=== PATIENT | male | born 1930 | race Two or more races ===

== ENCOUNTER 2021-01-19 09:20 | Inpatient (IN) | payer MEDICARE, BC ==
[2021-01-19] MEDS ORDERED: Sodium Chloride 0.9% 1,000 ML IV ONE ×2 (09:26→11:06)
--- NOTE | 2021-01-19 09:28 | EDM.PDOC ---
ED HPI GENERAL MEDICAL PROBLEM - General Chief Complaint: General Stated Complaint: DEMENTIA Time Seen by Provider: 01/19/21 09:22 Source of Information: Reports: EMS, Family History Limitations: Reports: No Limitations - History of Present Illness INITIAL COMMENTS - FREE TEXT/NARRATIVE: 89-year-old male unknown past medical history presents for family not being able to take care of him at home. Family called EMS and states that they are unable to care for patient and requested that he be brought to the hospital. Patient is not answering any questions, combative, cussing at staff. He does have a history of dementia per EMS. 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; please see [id number] for past medical records - Related Data Allergies Allergy/AdvReac Type Severity Reaction Status Date / Time No Known Allergies Allergy Verified 01/19/21 09:35 ED ROS GENERAL - Review of Systems Review Of Systems: Unable To Obtain Reason Not Obtained: dementia ED EXAM, GENERAL - Physical Exam Exam: See Below Exam Limited By: No Limitations General Appearance: Alert, Other (thin, frail, elderly male in NAD) Eye Exam: Bilateral Eye: EOMI, PERRL Ears: Hearing Grossly Normal Throat/Mouth: Other (dry oral mucousa, dried blood in teeth and lips) Head: Atraumatic, Normocephalic Neck: Normal Inspection Respiratory/Chest: No Respiratory Distress, Lungs Clear, Normal Breath Sounds, No Accessory Muscle Use Cardiovascular: Normal Peripheral Pulses, Regular Rate, Rhythm GI/Abdominal: Soft, Other (diffuse TTP) Extremities: Normal Inspection Neurological: Alert. No: Oriented Psychiatric: Other (combative, agitated ) Skin Exam: Warm, Dry, Intact #1 Interpretation EKG Date: 01/19/21 Time: 10:54 Rhythm: Other (AV dual paced) Rate (Beats/Min): 95 ST-T: Normal QT: Normal EKG Interpretation Comments: AV dual paced rhythm Course - Vital Signs Last Recorded V/S: Last Vital Signs Temp 98.2 F 01/19/21 14:49 Pulse 68 01/19/21 14:49 Resp 18 01/19/21 14:49 BP 150/72 H 01/19/21 14:49 Pulse Ox 97 01/19/21 14:49 - Orders/Labs/Meds Orders: Active Orders 24 hr Category Date Time Status Insert Wall Catheter [Insert Urinary Catheter] [OM.PC] Care 01/19/21 12:00 Ordered Q24H Urinary Catheter Assessment [RC] ASDIRECTED Care 01/19/21 11:56 Active CULTURE BLOOD [BC] Stat Lab 01/19/21 12:50 Received CULTURE BLOOD [BC] Stat Lab 01/19/21 12:55 Received Dextrose 5%-0.9% NaCl [Dextrose 5%-Normal Saline] 1,000 Med 01/19/21 13:15 Active ml IV ASDIRECTED Blood Culture x2 Reflex Set [OM.PC] Stat Oth 01/19/21 12:22 Ordered Saline Lock Insert [OM.PC] Stat Oth 01/19/21 09:22 Ordered Medication Orders Dextrose/Sodium Chloride (Dextrose 5%-Normal Saline) 1,000 mls @ 150 mls/hr IV ASDIRECTED KALPESH Last Admin: 01/19/21 13:29 Dose: 150 mls/hr Documented by: RENAE Labs: Laboratory Tests 01/19/21 01/19/21 01/19/21 Range/Units 10:00 10:00 10:00 WBC 12.14 H (4.0-11.0) K/uL RBC 5.51 (4.50-5.90) M/uL Hgb 15.3 (13.0-17.0) g/dL Hct 45.7 (38.0-50.0) % MCV 82.9 (80.0-98.0) fL MCH 27.8 (27.0-32.0) pg MCHC 33.5 (31.0-37.0) g/dL RDW Std Deviation 46.9 (28.0-62.0) fl RDW Coeff of Mitch 16 H (11.0-15.0) % Plt Count 169 (150-400) K/uL MPV 11.90 (7.40-12.00) fL Neut % (Auto) 86.8 H (48.0-80.0) % Lymph % (Auto) 4.0 L (16.0-40.0) % Noble % (Auto) 8.9 (0.0-15.0) % Eos % (Auto) 0.1 (0.0-7.0) % Baso % (Auto) 0.2 (0.0-1.5) % Neut # (Auto) 10.5 H (1.4-5.7) K/uL Lymph # (Auto) 0.5 L (0.6-2.4) K/uL Noble # (Auto) 1.1 H (0.0-0.8) K/uL Eos # (Auto) 0.0 (0.0-0.7) K/uL Baso # (Auto) 0.0 (0.0-0.1) K/uL Nucleated RBC % 0.0 /100WBC Nucleated RBCs # 0 K/uL Sodium 146 (136-148) mmol/L Potassium 4.7 (3.5-5.1) mmol/L Chloride 109 H (98-107) mmol/L Carbon Dioxide 26.6 (21.0-32.0) mmol/L BUN 44 H (7.0-18.0) mg/dL Creatinine 1.8 H (0.8-1.3) mg/dL Est Cr Clr Drug Dosing TNP Estimated GFR (MDRD) 35.7 ml/min Glucose 127 H (74-106) mg/dL Lactic Acid (0.4-2.0) mmol/L Calcium 8.8 (8.5-10.1) mg/dL Magnesium 2.4 (1.8-2.4) mg/dL Total Bilirubin 0.9 (0.2-1.0) mg/dL AST 88 H (15-37) IU/L ALT 40 (14-63) IU/L Alkaline Phosphatase 74 (46-116) U/L Creatine Kinase 1588 H (26-308) U/L Troponin I < 0.050 (0.000-0.056) ng/mL Total Protein 6.7 (6.4-8.2) g/dL Albumin 3.4 (3.4-5.0) g/dL Globulin 3.3 (2.6-4.0) g/dL Albumin/Globulin Ratio 1.0 (0.9-1.6) Lipase 42 L (73-393) U/L TSH, Ultra Sensitive 2.20 (0.36-3.74) uIU/mL Urine Color Urine Appearance Urine pH (5.0-8.0) Ur Specific [place] (1.001-1.035) Urine Protein (NEGATIVE) mg/dL Urine Glucose (UA) (NEGATIVE) mg/dL Urine Ketones (NEGATIVE) mg/dL Urine Occult Blood (NEGATIVE) Urine Nitrite (NEGATIVE) Urine Bilirubin (NEGATIVE) Urine Urobilinogen (<2.0) EU/dL Ur Leukocyte Esterase (NEGATIVE) Urine RBC (0-2/HPF) Urine WBC (0-5/HPF) Ur Epithelial Cells (NONE-FEW) Urine Bacteria (NEGATIVE) SARS-CoV-2 RNA (ROSCOE) NEGATIVE (NEGATIVE) 01/19/21 01/19/21 Range/Units 12:05 12:20 WBC (4.0-11.0) K/uL RBC (4.50-5.90) M/uL Hgb (13.0-17.0) g/dL Hct (38.0-50.0) % MCV (80.0-98.0) fL MCH (27.0-32.0) pg MCHC (31.0-37.0) g/dL RDW Std Deviation (28.0-62.0) fl RDW Coeff of Mitch (11.0-15.0) % Plt Count (150-400) K/uL MPV (7.40-12.00) fL Neut % (Auto) (48.0-80.0) % Lymph % (Auto) (16.0-40.0) % Noble % (Auto) (0.0-15.0) % Eos % (Auto) (0.0-7.0) % Baso % (Auto) (0.0-1.5) % Neut # (Auto) (1.4-5.7) K/uL Lymph # (Auto) (0.6-2.4) K/uL Noble # (Auto) (0.0-0.8) K/uL Eos # (Auto) (0.0-0.7) K/uL Baso # (Auto) (0.0-0.1) K/uL Nucleated RBC % /100WBC Nucleated RBCs # K/uL Sodium (136-148) mmol/L Potassium (3.5-5.1) mmol/L Chloride (98-107) mmol/L Carbon Dioxide (21.0-32.0) mmol/L BUN (7.0-18.0) mg/dL Creatinine (0.8-1.3) mg/dL Est Cr Clr Drug Dosing Estimated GFR (MDRD) ml/min Glucose (74-106) mg/dL Lactic Acid 1.1 (0.4-2.0) mmol/L Calcium (8.5-10.1) mg/dL Magnesium (1.8-2.4) mg/dL Total Bilirubin (0.2-1.0) mg/dL AST (15-37) IU/L ALT (14-63) IU/L Alkaline Phosphatase (46-116) U/L Creatine Kinase (26-308) U/L Troponin I (0.000-0.056) ng/mL Total Protein (6.4-8.2) g/dL Albumin (3.4-5.0) g/dL Globulin (2.6-4.0) g/dL Albumin/Globulin Ratio (0.9-1.6) Lipase (73-393) U/L TSH, Ultra Sensitive (0.36-3.74) uIU/mL Urine Color YELLOW Urine Appearance CLEAR Urine pH 6.0 (5.0-8.0) Ur Specific [place] 1.015 (1.001-1.035) Urine Protein TRACE H (NEGATIVE) mg/dL Urine Glucose (UA) NEGATIVE (NEGATIVE) mg/dL Urine Ketones TRACE H (NEGATIVE) mg/dL Urine Occult Blood SMALL H (NEGATIVE) Urine Nitrite NEGATIVE (NEGATIVE) Urine Bilirubin NEGATIVE (NEGATIVE) Urine Urobilinogen 0.2 (<2.0) EU/dL Ur Leukocyte Esterase NEGATIVE (NEGATIVE) Urine RBC 1-2 (0-2/HPF) Urine WBC 0-2 (0-5/HPF) Ur Epithelial Cells RARE (NONE-FEW) Urine Bacteria FEW (NEGATIVE) SARS-CoV-2 RNA (ROSCOE) (NEGATIVE) Meds: Medications Generic Name Dose Route Start Last Admin Trade Name Freq PRN Reason Stop Dose Admin Dextrose/Sodium Chloride 1,000 mls @ 150 mls/hr 01/19/21 13:15 01/19/21 13:29 Dextrose 5%-Normal Saline IV 150 mls/hr ASDIRECTED KALPESH Administration Discontinued Medications Generic Name Dose Route Start Last Admin Trade Name Freq PRN Reason Stop Dose Admin Diphenhydramine HCl 50 mg 01/19/21 10:40 01/19/21 10:45 Diphenhydramine 50 Mg/Ml Sdv IVPUSH 01/19/21 10:41 50 mg ONETIME ONE Administration Diphenhydramine HCl Confirm 01/19/21 10:42 01/19/21 11:23 Diphenhydramine 50 Mg/Ml Sdv Administered 01/19/21 10:43 Not Given Dose 50 mg .ROUTE .STK-MED ONE Haloperidol Lactate 5 mg 01/19/21 09:32 01/19/21 09:50 Haloperidol Lactate 5 Mg/Ml Sdv IM 01/19/21 09:33 5 mg ONETIME ONE Administration Sodium Chloride 1,000 mls @ 999 mls/hr 01/19/21 09:26 01/19/21 09:51 Normal Saline IV 01/19/21 10:26 999 mls/hr .Bolus ONE Administration Sodium Chloride 1,000 mls @ 999 mls/hr 01/19/21 11:06 01/19/21 11:54 Normal Saline IV 01/19/21 12:06 999 mls/hr .Bolus ONE Administration Cefepime HCl 1 gm/ Premix 50 mls @ 100 mls/hr 01/19/21 12:12 01/19/21 13:29 IV 01/19/21 12:41 100 mls/hr ONETIME ONE Administration Labetalol HCl 20 mg 01/19/21 12:22 01/19/21 13:12 Labetalol 100 Mg/20 Ml Mdv IVPUSH 01/19/21 12:23 Not Given ONETIME ONE Protocol Labetalol HCl 20 mg 01/19/21 13:44 01/19/21 13:49 Labetalol 100 Mg/20 Ml Mdv IVPUSH 01/19/21 13:45 20 mg ONETIME ONE Administration Protocol Lorazepam 2 mg 01/19/21 10:40 01/19/21 10:46 Lorazepam 2 Mg/Ml Sdv IVPUSH 01/19/21 10:41 2 mg ONETIME ONE Administration Lorazepam Confirm 01/19/21 10:43 01/19/21 11:23 Lorazepam 2 Mg/Ml Sdv Administered 01/19/21 10:44 Not Given Dose 2 mg .ROUTE .STK-MED ONE - Re-Assessments/Exams Free Text/Narrative Re-Assessment/Exam: 01/19/21 10:49 Extensive work-up will be performed secondary to lack of history and patient inability to provide history. Will attempt to reach out to patient's family for additional history. Patient required Haldol for sedation which was an adequate to perform medical work-up so Benadryl and Ativan was given as well. 01/19/21 10:52 Patient's family member did not answer the phone 01/19/21 11:[address] reveals a small subdural hematoma with trace midline shift. is now at bedside and able to provide additional history. notes that patient has had gradual decline over several months, eating loss, refusing to drink or take his medications. Patient with past medical history of hypertension, GERD, dementia. She notes that he fell on Monday. He has had worsening of condition since the fall. He is not on any blood thinning medications. 01/19/21 12:03 Patient was seen in the emergency department under his other medical record for his fall. He was found to have 2 rib fractures there is not a head CT performed during this visit.. 01/19/21 12:[address] Saini ER physician at [facility]; they do not have beds available and since patient is DNR/DNI/no surgical intervention, they are unable to accommodate him. I did speak with their neurosurgeon Dr. Cline who recommends keeping patient well hydrated, recommends a D5 NS drip after bolus, recommends clovidipine vs nicardipine vs labetalol for BP control systolic <140. Recommends keeping patient flat x2 days. She is agreeable to phone consultations. Will reach out to hospitalist and see if we are able to keep patient here. 01/19/21 12:21 Patient does have evidence of pneumonia on CT imaging; cefepime ordered. 01/19/21 13:08 Patient declined for admission at our hospital 2/2 low staff. Transfer center is working on in-state transfer but notes very low availability and is not having any luck at this time. 01/19/21 13:56 [facility] does not have beds 01/19/21 14:19 [facility] does not have beds 01/19/21 15:13 The [facility] transfer center is called and notes that they are unable to find any beds in the states of [place], [place], [place]. 01/19/21 15:16 We will keep patient at our facility Departure - Departure Time of Disposition: 15:16 Disposition: Admitted As Inpatient 67 Condition: Good Clinical Impression: Subdural hematoma Rhabdomyolysis Qualifiers: Rhabdomyolysis type: non-traumatic Qualified Code(s): M62.82 - Rhabdomyolysis Failure to thrive Qualifiers: Failure to thrive age range: in adult Qualified Code(s): R62.7 - Adult failure to thrive Pneumonia Qualifiers: Pneumonia type: due to unspecified organism Laterality: unspecified laterality Lung location: unspecified part of lung Qualified Code(s): J18.9 - Pneumonia, unspecified organism - Discharge Information Referrals: Pablo Reynolds MD [Primary Care Provider] - Forms: ED Department Discharge Critical Care Note - Critical Care Note Total Time (mins): 35 Sepsis Event Note (ED) - Focused Exam Vital Signs: Vital Signs Temp Pulse Resp BP Pulse Ox 01/19/21 14:49 98.2 F 68 18 150/72 H 97 01/19/21 13:54 98.2 F 84 18 152/74 H 97 01/19/21 13:48 98.2 F 88 18 187/87 H 97 01/19/21 13:33 82 18 110/90 97 01/19/21 12:54 98.2 F 92 18 179/87 H 97 01/19/21 11:15 82 18 179/87 H 97 01/19/21 10:30 87 18 97 01/19/21 10:00 98.1 F 88 18 188/83 H 97 01/19/21 09:29 96.8 F L 97 22 H 150/110 H 98 01/19/21 09:22 96.8 F L 95 22 H 156/120 H 97 - My Orders Last 24 Hours: My Active Orders 01/19/21 09:22 Saline Lock Insert [OM.PC] Stat 01/19/21 11:56 Urinary Catheter Assessment [RC] ASDIRECTED 01/19/21 12:00 Insert Wall Catheter [Insert Urinary Catheter] [OM.PC] Q24H 01/19/21 12:22 Blood Culture x2 Reflex Set [OM.PC] Stat 01/19/21 12:50 CULTURE BLOOD [BC] Stat 01/19/21 12:55 CULTURE BLOOD [BC] Stat 01/19/21 13:15 Dextrose 5%-0.9% NaCl [Dextrose 5%-Normal Saline] 1,000 ml IV ASDIRECTED - Assessment/Plan Last 24 Hours: My Active Orders 01/19/21 09:22 Saline Lock Insert [OM.PC] Stat 01/19/21 11:56 Urinary Catheter Assessment [RC] ASDIRECTED 01/19/21 12:00 Insert Wall Catheter [Insert Urinary Catheter] [OM.PC] Q24H 01/19/21 12:22 Blood Culture x2 Reflex Set [OM.PC] Stat 01/19/21 12:50 CULTURE BLOOD [BC] Stat 01/19/21 12:55 CULTURE BLOOD [BC] Stat 01/19/21 13:15 Dextrose 5%-0.9% NaCl [Dextrose 5%-Normal Saline] 1,000 ml IV ASDIRECTED
[2021-01-19] MEDS ORDERED: Haloperidol Lactate 5 MG/ML SDV IM ONE (09:32)
[2021-01-19] MEDS ORDERED: LORazepam 2 MG/ML SDV IVPUSH ONE (10:40)
[2021-01-19] MEDS ORDERED: diphenhydrAMINE 50 MG/ML SDV IVPUSH ONE (10:40)
[2021-01-19] MEDS ORDERED: diphenhydrAMINE 50 MG/ML SDV ONE (10:42)
[2021-01-19] MEDS ORDERED: LORazepam 2 MG/ML SDV ONE (10:43)
[2021-01-19 11:01] LABS: BLOOD UREA NITROGEN,BUN 44 mg/dL (7.0-18.0); CARBON DIOXIDE,CO2 26.6 mmol/L (21.0-32.0); CHLORIDE,CL 109 mmol/L (98-107); GLUCOSE RANDOM 127 mg/dL (74-106); LIPASE 42 U/L (73-393); POTASSIUM,K 4.7 mmol/L (3.5-5.1); SODIUM,NA 146 mmol/L (136-148)
--- NOTE | 2021-01-19 11:47 | CT ---
Indication: Dementia and altered mental status Technique: Volumetric multidetector CT images of the head were obtained without the administration of low osmolar intravenous contrast. Comparison: None available Findings: There is minimal hyper dense extra-axial hemorrhage along the left cerebral convexity. There is no other intra-axial or extra-axial fluid collection. There is mild left to right midline shift of 3 millimeters. There is age-related cortical atrophy with mild sulcal widening and ex vacuo dilatation of the lateral ventricles. There are chronic small vessel disease changes in the subcortical and periventricular white matter without lost nelson-white differentiation. The orbits and their contents are grossly within normal limits. The bony calvarium is grossly intact. There is mild to moderate mucosal thickening seen within the paranasal sinuses. The mastoid air cells are well aerated. Impression: Demonstration of a small left convexity subdural hematoma with effacement of the left cerebral convexity and trace [id number] midline shift. Otherwise, age-related and chronic small-vessel disease changes of the brain are appreciated. Please note that all CT scans at this facility use dose modulation, iterative reconstruction, and/or weight-based dosing when appropriate to reduce radiation dose to as low as reasonably achievable. Dictated by Rocco Chamberlain MD @ 01/19/2021 11:46:30 AM (Electronically Signed)
--- NOTE | 2021-01-19 11:57 | CT ---
Indication: Dementia, altered mental status and abdominal Pain Technique: Volumetric multidetector CT images of the abdomen and pelvis were without the administration of intravenous contrast. Comparison: None available. Findings: There is demonstration of trace right basilar pleural fluid with airspace opacity in the right lung base likely representing infiltrate. The liver is normal in attenuation without intrahepatic biliary ductal dilatation. The gallbladder is unremarkable without evidence of radiopaque calculus. There is no significant common biliary ductal dilatation or abrupt cut off. The spleen is normal in attenuation and size. There is a moderate hiatal hernia. Otherwise the proximal stomach is grossly unremarkable. The pancreas is normal in attenuation without significant atrophy. The adrenal glands are unremarkable. There is no evidence of hydronephrosis or hydroureter with demonstration of a nonobstructing calculus in the dependent bladder. There is moderate prostatic hypertrophic change. There is moderate stool seen throughout the colon. The appendix is unremarkable. There is no significant mesenteric, retroperitoneal, or pelvic sidewall lymph nodes. The aorta is nonaneurysmal. There is no significant atherosclerotic disease appreciated. The solid pelvic viscera are grossly unremarkable. There is no free fluid or free air. The anterior abdominal wall is intact without significant hernias. The lumbar vertebral body heights are grossly maintained with minimal endplate Schmorl`s defects. There is anterolisthesis of L4 on L5. There is no evidence of displaced fracture or dislocation. Impression: Minimal airspace opacity seen in the right lung base likely representing infiltrate. Nonobstructing calculi within the dependent portion of the bladder incidentally appreciated. Moderate stool is seen throughout the colon with nonspecific gas filled loops of central small bowel. This could represent minimal enteritis change. Otherwise, no definite acute intra-abdominal abnormality. Please note that all CT scans at this facility use dose modulation, iterative reconstruction, and/or weight-based dosing when appropriate to reduce radiation dose to as low as reasonably achievable. Dictated by Rocco Chamberlain MD @ 01/19/2021 11:55:12 AM (Electronically Signed)
--- NOTE | 2021-01-19 12:03 | CT ---
INDICATION: Abdominal pain. Dementia. Altered mental status. TECHNIQUE: Volumetric helical scanning of the thorax was performed without IV contrast material. Coronal and sagittal reconstructions were obtained. COMPARISON: Today`s abdomen/pelvis CT. FINDINGS: An infiltrate in the posterior right lower lobe is again demonstrated along with a small right pleural effusion. The lungs are otherwise clear. Mucous plugging in the right lower lobe base is noted. The airways are otherwise grossly negative. No mediastinal or hilar lymphadenopathy is demonstrated. The heart size is normal. Calcified coronary arterial plaque is demonstrated. A cardiac pacer is noted. A hiatal hernia of moderate large size is noted. IMPRESSION: 1. Right lower lobe pneumonia, mucus plugging in the right base and small right pleural effusion. 2. Hiatal hernia of moderate to large size. Please note that all CT scans at this facility use dose modulation, iterative reconstruction, and/or weight-based dosing when appropriate to reduce radiation dose to as low as reasonably achievable. Dictated by Kieran Quintero MD @ 01/19/2021 12:02:31 PM (Electronically Signed)
[2021-01-19] MEDS ORDERED: Cefepime 1 GM in Premix Bag 1 BAG IV ONE (12:12)
[2021-01-19] MEDS ORDERED: Labetalol 100 MG/20 ML MDV IVPUSH ONE ×2 (12:22→13:44)
[2021-01-19] MEDS ORDERED: Dextrose 5%-0.9% NaCl 1,000 ML IV SCH (13:15)
[2021-01-19] MEDS ORDERED: Acetaminophen 650 MG Supp RECTAL PRN (16:04)
[2021-01-19] MEDS ORDERED: Ondansetron 4 MG/2 ML SDV IVPUSH PRN (16:06)
[2021-01-19] MEDS ORDERED: Sodium Chloride 0.9% 2.5 ML Syringe FLUSH PRN (16:06)
--- NOTE | 2021-01-19 16:23 | PCM.HP.2 ---
H&P History of Present Illness - General Date of Service: 01/19/21 Admit Problem/Dx: Admission Diagnosis/Problem Admission Diagnosis/Problem Subdural hematoma Source of Information: Family (Gayle, ) History Limitations: Reports: Altered Mental Status - History of Present Illness Initial Comments - Free Text/Narative: This 89-year-old male with past medical history of GERD HTN and dementia presented to the ER via EMS for family concerns that they are unable to care for the patient requested that he brought back to the hospital. Patient is poor historian and has been combative and swearing at staff. arrived at bedside and explained that over the past several months he has had a significant decline not eating refusing to drink or take medications. She reports that he fell on Monday and he has since worsened since the fall. Denies any use of blood thinners. Patient was seen in the ER at this time found to have 2 displaced right rib fractures of 10th and 11th ribs but no head CT performed. In the ER mild leukocytosis noted 12,000 platelets 169,000 chloride 109 BUN 44 creatinine 1.8 glucose 127 lactic acid 1.1 creatinine kinase 1588 lipase 42 UA n egative Covid swab negative. Vital signs reveal blood pressure mildly elevated on arrival 170s over 80s blood pressure is now 150/72 patient has been given labetalol 20 mg along with Benadryl Haldol and Ativan due to agitation. He was also started on D5 normal saline. For his pneumonia he was treated with cefepime [address] of the abdomen pelvis obtained which shows trace right basilar pleural fluid with a airspace opacity likely representing an infiltrate in the right lung base. Nonobstructing calculi in portion of the bladder and moderate stool seen throughout the colon with nonspecific gas-filled loops of central small bowel this could represent minimal enteritis. Otherwise no acute intra-abdominal abnormality. Chest CT reveals right lower lobe pneumonia with mucous plug in the right base and small right pleural effusion, hiatal hernia of moderate to large size. Head CT obtained which shows demonstration of small left convexity subdural hematoma with effacement of the left cerebral convexity and trace left to right midline shift. Otherwise age-related and chronic small vessel disease changes of the brain are appreciated. ER provider contacted neurosurgeon Dr. Cline in [facility] who recommended no surgical intervention as patient is DNR/DNI and otherwise would not want surgical intervention. She recommended keeping patient well-hydrated and recommends blood pressure control for systolic under 140. Also recommends keeping patient flat for 2 days. Transfer was attempted but at this time no available beds across the state of [place] and into [place]. I did speak with , Gayle, regarding goals of care. She feels as though patient would not want any aggressive interventions including surgery or continuous IV management with medications such as a blood pressure control drip. She at this time would like patient to be more comfort care providing medication IV push for blood pressure along with agitation. She is okay with treatment of pneumonia but her ultimate goal would be comfort of the patient. She understands patient needs to be low stimulation and to lie flat for the next couple days we will repeat CT in the morning to evaluate hematoma. - Related Data Allergies/Adverse Reactions: Allergies Allergy/AdvReac Type Severity Reaction Status Date / Time No Known Allergies Allergy Verified 01/19/21 09:35 Social & Family History - Tobacco Use Tobacco Use Status *Q: Current Status Unknown Second Hand Smoke Exposure: No - Caffeine Use Caffeine Use: Reports: None - Recreational Drug Use Recreational Drug Use: No - Living Situation & Occupation Living situation: Reports: Occupation: Retired H&P Review of Systems - Review of Systems: Review Of Systems: Unable To Obtain Reason Not Obtained: patient sedated Exam - Exam Exam: See Below - Vital Signs Vital Signs: Last Vital Signs Temp 98.2 F 01/19/21 14:49 Pulse 68 01/19/21 14:49 Resp 18 01/19/21 14:49 BP 150/72 H 01/19/21 14:49 Pulse Ox 97 01/19/21 14:49 - Exam General: Sedated, Other (Does move all limbs when palpated.) HEENT: Pupils Equal (Pinpoint but reactive), Pupils Reactive Lungs: Normal Respiratory Effort, Crackles (Right base) Cardiovascular: Regular Rate, Regular Rhythm GI/Abdominal Exam: Normal Bowel Sounds, Soft, Non-Tender, No Distention Extremities: Normal Inspection, Non-Tender, No Pedal Edema Skin: Warm, Dry, Wound (Bruises and abrasions noted to arms and legs in multiple stages of healing. No signs of infection) Neuro Extensive - Mental Status: Withdraws to Pain, Other (Patient sedated unable to elicit full neurological exam.) Psychiatric: Other (Patient sedated) - Patient Data Lab Results Last 24 hrs: Laboratory Results - last 24 hr 01/19/21 01/19/21 01/19/21 Range/Units 10:00 10:00 10:00 WBC 12.14 H (4.0-11.0) K/uL RBC 5.51 (4.50-5.90) M/uL Hgb 15.3 (13.0-17.0) g/dL Hct 45.7 (38.0-50.0) % MCV 82.9 (80.0-98.0) fL MCH 27.8 (27.0-32.0) pg MCHC 33.5 (31.0-37.0) g/dL RDW Std Deviation 46.9 (28.0-62.0) fl RDW Coeff of Mitch 16 H (11.0-15.0) % Plt Count 169 (150-400) K/uL MPV 11.90 (7.40-12.00) fL Neut % (Auto) 86.8 H (48.0-80.0) % Lymph % (Auto) 4.0 L (16.0-40.0) % [place] % (Auto) 8.9 (0.0-15.0) % Eos % (Auto) 0.1 (0.0-7.0) % Baso % (Auto) 0.2 (0.0-1.5) % Neut # (Auto) 10.5 H (1.4-5.7) K/uL Lymph # (Auto) 0.5 L (0.6-2.4) K/uL [place] # (Auto) 1.1 H (0.0-0.8) K/uL Eos # (Auto) 0.0 (0.0-0.7) K/uL Baso # (Auto) 0.0 (0.0-0.1) K/uL Nucleated RBC % 0.0 /100WBC Nucleated RBCs # 0 K/uL Sodium 146 (136-148) mmol/L Potassium 4.7 (3.5-5.1) mmol/L Chloride 109 H (98-107) mmol/L Carbon Dioxide 26.6 (21.0-32.0) mmol/L BUN 44 H (7.0-18.0) mg/dL Creatinine 1.8 H (0.8-1.3) mg/dL Est Cr Clr Drug Dosing TNP Estimated GFR (MDRD) 35.7 ml/min Glucose 127 H (74-106) mg/dL Lactic Acid (0.4-2.0) mmol/L Calcium 8.8 (8.5-10.1) mg/dL Magnesium 2.4 (1.8-2.4) mg/dL Total Bilirubin 0.9 (0.2-1.0) mg/dL AST 88 H (15-37) IU/L ALT 40 (14-63) IU/L Alkaline Phosphatase 74 (46-116) U/L Creatine Kinase 1588 H (26-308) U/L Troponin I < 0.050 (0.000-0.056) ng/mL Total Protein 6.7 (6.4-8.2) g/dL Albumin 3.4 (3.4-5.0) g/dL Globulin 3.3 (2.6-4.0) g/dL Albumin/Globulin Ratio 1.0 (0.9-1.6) Lipase 42 L (73-393) U/L TSH, Ultra Sensitive 2.20 (0.36-3.74) uIU/mL Urine Color Urine Appearance Urine pH (5.0-8.0) Ur Specific Jameson (1.001-1.035) Urine Protein (NEGATIVE) mg/dL Urine Glucose (UA) (NEGATIVE) mg/dL Urine Ketones (NEGATIVE) mg/dL Urine Occult Blood (NEGATIVE) Urine Nitrite (NEGATIVE) Urine Bilirubin (NEGATIVE) Urine Urobilinogen (<2.0) EU/dL Ur Leukocyte Esterase (NEGATIVE) Urine RBC (0-2/HPF) Urine WBC (0-5/HPF) Ur Epithelial Cells (NONE-FEW) Urine Bacteria (NEGATIVE) SARS-CoV-2 RNA (ROSCOE) NEGATIVE (NEGATIVE) 01/19/21 01/19/21 Range/Units 12:05 12:20 WBC (4.0-11.0) K/uL RBC (4.50-5.90) M/uL Hgb (13.0-17.0) g/dL Hct (38.0-50.0) % MCV (80.0-98.0) fL MCH (27.0-32.0) pg MCHC (31.0-37.0) g/dL RDW Std Deviation (28.0-62.0) fl RDW Coeff of Mitch (11.0-15.0) % Plt Count (150-400) K/uL MPV (7.40-12.00) fL Neut % (Auto) (48.0-80.0) % Lymph % (Auto) (16.0-40.0) % [place] % (Auto) (0.0-15.0) % Eos % (Auto) (0.0-7.0) % Baso % (Auto) (0.0-1.5) % Neut # (Auto) (1.4-5.7) K/uL Lymph # (Auto) (0.6-2.4) K/uL [place] # (Auto) (0.0-0.8) K/uL Eos # (Auto) (0.0-0.7) K/uL Baso # (Auto) (0.0-0.1) K/uL Nucleated RBC % /100WBC Nucleated RBCs # K/uL Sodium (136-148) mmol/L Potassium (3.5-5.1) mmol/L Chloride (98-107) mmol/L Carbon Dioxide (21.0-32.0) mmol/L BUN (7.0-18.0) mg/dL Creatinine (0.8-1.3) mg/dL Est Cr Clr Drug Dosing Estimated GFR (MDRD) ml/min Glucose (74-106) mg/dL Lactic Acid 1.1 (0.4-2.0) mmol/L Calcium (8.5-10.1) mg/dL Magnesium (1.8-2.4) mg/dL Total Bilirubin (0.2-1.0) mg/dL AST (15-37) IU/L ALT (14-63) IU/L Alkaline Phosphatase (46-116) U/L Creatine Kinase (26-308) U/L Troponin I (0.000-0.056) ng/mL Total Protein (6.4-8.2) g/dL Albumin (3.4-5.0) g/dL Globulin (2.6-4.0) g/dL Albumin/Globulin Ratio (0.9-1.6) Lipase (73-393) U/L TSH, Ultra Sensitive (0.36-3.74) uIU/mL Urine Color YELLOW Urine Appearance CLEAR Urine pH 6.0 (5.0-8.0) Ur Specific Jameson 1.015 (1.001-1.035) Urine Protein TRACE H (NEGATIVE) mg/dL Urine Glucose (UA) NEGATIVE (NEGATIVE) mg/dL Urine Ketones TRACE H (NEGATIVE) mg/dL Urine Occult Blood SMALL H (NEGATIVE) Urine Nitrite NEGATIVE (NEGATIVE) Urine Bilirubin NEGATIVE (NEGATIVE) Urine Urobilinogen 0.2 (<2.0) EU/dL Ur Leukocyte Esterase NEGATIVE (NEGATIVE) Urine RBC 1-2 (0-2/HPF) Urine WBC 0-2 (0-5/HPF) Ur Epithelial Cells RARE (NONE-FEW) Urine Bacteria FEW (NEGATIVE) SARS-CoV-2 RNA (ROSCOE) (NEGATIVE) Result Diagrams: 01/19/21 10:00 01/19/21 10:00 Sepsis Event Note - Evaluation Sepsis Screening Result: No Definite Risk - Focused Exam Vital Signs: Vital Signs Temp Pulse Resp BP Pulse Ox 01/19/21 14:49 98.2 F 68 18 150/72 H 97 01/19/21 13:54 98.2 F 84 18 152/74 H 97 01/19/21 13:48 98.2 F 88 18 187/87 H 97 01/19/21 13:33 82 18 110/90 97 01/19/21 12:54 98.2 F 92 18 179/87 H 97 01/19/21 11:15 82 18 179/87 H 97 01/19/21 10:30 87 18 97 01/19/21 10:00 98.1 F 88 18 188/83 H 97 01/19/21 09:29 96.8 F L 97 22 H 150/110 H 98 01/19/21 09:22 96.8 F L 95 22 H 156/120 H 97 - Problem List (1) Subdural hematoma SNOMED Code(s): 023901048 ICD Code: S06.5X9A - TRAUM SUBDR HEM W LOC OF UNSP DURATION, INIT Status: Acute Current Visit: Yes (2) Failure to thrive SNOMED Code(s): 99612068 ICD Code: UNW2018 - Status: Acute Current Visit: Yes Qualifiers: Failure to thrive age range: in adult Qualified Code(s): R62.7 - Adult failure to thrive (3) Pneumonia SNOMED Code(s): 941859172 ICD Code: J18.9 - PNEUMONIA, UNSPECIFIED ORGANISM Status: Acute Current Visit: Yes Qualifiers: Pneumonia type: due to unspecified organism Laterality: right Lung location: lower lobe of lung Qualified Code(s): J18.9 - Pneumonia, unspecified organism (4) Palliative care status SNOMED Code(s): 317383524 ICD Code: Z51.5 - ENCOUNTER FOR PALLIATIVE CARE Status: Acute Current Vis it: Yes (5) Rhabdomyolysis SNOMED Code(s): 512133023 ICD Code: M62.82 - RHABDOMYOLYSIS Status: Acute Current Visit: Yes Qualifiers: Rhabdomyolysis type: non-traumatic Qualified Code(s): M62.82 - Rhabdomyol ysis (6) Hypertension SNOMED Code(s): 75068093 ICD Code: I10 - ESSENTIAL (PRIMARY) HYPERTENSION Status: Chronic Current Visit: Yes (7) GERD (gastroesophageal reflux disease) SNOMED Code(s): 783404114 ICD Code: K21.9 - GASTRO-ESOPHAGEAL REFLUX DISEASE WITHOUT ESOPHAGITIS Status: Chronic Current Visit: Yes (8) Dementia SNOMED Code(s): 50094352 ICD Code: F03.90 - UNSPECIFIED DEMENTIA WITHOUT BEHAVIORAL DISTURBANCE Status: Chronic Current Visit: Yes (9) Rib fractures SNOMED Code(s): 3735642 ICD Code: S22.49XA - MULTIPLE FRACTURES OF RIBS, UNSP SIDE, INIT FOR CLOS FX Status: Acute Current Visit: Yes Qualifiers: Encounter type: subsequent encounter Fracture type: closed Laterality: right Problem List Initiated/Reviewed/Updated: Yes Orders Last 24hrs: Active Orders 24 hr Category Date Time Status Patient Status [ADT] Routine ADT 01/19/21 15:22 Active Antiembolic Devices [RC] PER UNIT ROUTINE Care 01/19/21 16:06 Ordered Bedrest [RC] ASDIRECTED Care 01/19/21 16:06 Ordered Insert Wall Catheter [Insert Urinary Catheter] [OM.PC] Care 01/19/21 12:00 Ordered Q24H Oxygen Therapy [RC] PRN Care 01/19/21 16:04 Ordered Urinary Catheter Assessment [RC] ASDIRECTED Care 01/19/21 11:56 Active VTE/DVT Education [RC] PER UNIT ROUTINE Care 01/19/21 16:04 Ordered Vital Signs [RC] Q4H Care 01/19/21 16:04 Ordered Regular Diet [DIET] Diet 01/19/21 Dinner Ordered Head wo Cont [CT] Timed Exams 01/20/21 07:00 Ordered BASIC METABOLIC PANEL,BMP [CHEM] AM Lab 01/20/21 05:11 Ordered CBC WITH AUTO DIFF [HEME] AM Lab 01/20/21 05:11 Ordered CREATINE KINASE,CK [CHEM] AM Lab 01/20/21 05:11 Ordered CULTURE BLOOD [BC] Stat Lab 01/19/21 12:50 Received CULTURE BLOOD [BC] Stat Lab 01/19/21 12:55 Received MAGNESIUM [CHEM] AM Lab 01/20/21 05:11 Ordered Acetaminophen [Tylenol] Med 01/19/21 16:04 Ordered 650 mg RECTAL Q4H PRN Azithromycin [Zithromax] 500 mg Med 01/19/21 16:15 Ordered Sodium Chloride 0.9% [Normal Saline (AdvBag)] 250 ml IV DAILY Dextrose 5%-0.9% NaCl [Dextrose 5%-Normal Saline] 1,000 Med 01/19/21 16:15 Ordered ml IV Q8H LORazepam [Ativan] Med 01/19/21 16:06 Ordered 1 mg IM Q4H PRN Labetalol [Normodyne] Med 01/19/21 16:08 Ordered 10 mg IVPUSH Q2H PRN Morphine Med 01/19/21 16:04 Ordered 2 mg IVPUSH Q2H PRN OLANZapine [ZyPREXA] Med 01/19/21 16:09 Ordered 5 mg IM Q4H PRN Ondansetron [Zofran] Med 01/19/21 16:06 Ordered 4 mg IVPUSH Q4H PRN Sodium Chloride 0.9% [Saline Flush] Med 01/19/21 16:06 Ordered 2.5 ml FLUSH ASDIRECTED PRN Blood Culture x2 Reflex Set [OM.PC] Stat Oth 01/19/21 12:22 Ordered Blood Pressure [OM.PC] Routine Oth 01/19/21 16:07 Ordered Monitoring Observation Level [BH] Routine Oth 01/19/21 16:14 Ordered Saline Lock Insert [OM.PC] Routine Oth 09/07/21 16:04 Ordered Sequential Compression Device [OM.PC] Per Unit Routine Oth 01/19/21 16:06 Ordered Resuscitation Status Routine Resus Stat 01/19/21 16:04 Ordered Medication Orders Acetaminophen (Acetaminophen 650 Mg Supp) 650 mg RECTAL Q4H PRN PRN Reason: Pain (mild 1-3) Azithromycin 500 mg/ Sodium (Chloride) 250 mls @ 250 mls/hr IV Q24H KALPESH Dextrose/Sodium Chloride (Dextrose 5%-Normal Saline) 1,000 mls @ 125 mls/hr IV Q8H KALPESH Labetalol HCl (Labetalol 100 Mg/20 Ml Mdv) 10 mg IVPUSH Q2H PRN PRN Reason: SBP>140 Lorazepam (Lorazepam 2 Mg/Ml Sdv) 1 mg IM Q4H PRN PRN Reason: Agitation Morphine Sulfate (Morphine 2 Mg/Ml Syringe) 2 mg IVPUSH Q2H PRN PRN Reason: Pain (severe 7-10) Olanzapine (Olanzapine 10 Mg Vial) 5 mg IM Q4H PRN PRN Reason: Agitation Ondansetron HCl (Ondansetron 4 Mg/2 Ml Sdv) 4 mg IVPUSH Q4H PRN PRN Reason: Nausea Sodium Chloride (Sodium Chloride 0.9% 2.5 Ml Syringe) 2.5 ml FLUSH ASDIRECTED PRN PRN Reason: Keep Vein Open Assessment/Plan Comment:: This 89-year-old male admitted with subdural hematoma, CAP and failure to thrive 1. Subdural hematoma -Had long discussion with over the phone ultimate goal would be comfort she does not want any aggressive measures such as transfer, blood pressure m edication in drip form in need of ICU management and no surgical intervention -Palliative care -Continue blood pressure control keeping systolic blood pressure under 140 with labetalol IV push -Keep flat for 48 hours per neurosurgery recommendations -Wall catheter for now due to strict bedrest -Olanzapine and Ativan as needed for agitation -Continue D5NS 125 mL/h -One-to-one sitter -Repeat head CT in a.m. to evaluate hematoma -May need to consider care home placement but had discussed this with ER they have been trying to put this off as there may not be financial means of placement. 2. CAP Blood cultures pending- -Continue cefepime add azithromycin daily 3. Rhabdomyolysis -CPK 1588 continue IV fluids and recheck in a.m. 4. Failure to thrive -Patient has been refusing to eat or drink at home as well as refusing home medications -Monitor electrolytes daily VTE prophylaxis: SCDs only GI prophylaxis: Protonix CODE STATUS: DNR/DNI comfort measures Dispo: 2 to 3 days pending improvement possible pending placement Gayle contact number [phone]
[2021-01-19] MEDS: Labetalol 100 MG/20 ML MDV IVPUSH PRN ×2 (17:35→23:05)
[2021-01-19] MEDS: LORazepam 2 MG/ML SDV IM PRN ×2 (17:38→23:06)
[2021-01-19] MEDS: Azithromycin 500 MG in Sodium Chloride 0.9% 250 ML IV SCH (17:41)
[2021-01-19] MEDS: Dextrose 5%-0.9% NaCl 1,000 ML IV SCH ×2 (17:44→21:45)
[2021-01-20] MEDS ORDERED: hydrALAZINE 20 MG/ML SDV IVPUSH ONE (00:03)
[2021-01-20] MEDS ORDERED: hydrALAZINE 20 MG/ML SDV ONE (00:08)
[2021-01-20] MEDS: Cefepime 1 GM in Premix Bag 1 BAG IV SCH ×2 (00:20→13:11)
[2021-01-20] MEDS: Dextrose 5%-0.9% NaCl 1,000 ML IV SCH ×4 (00:21→20:32)
[2021-01-20] MEDS: Labetalol 100 MG/20 ML MDV IVPUSH PRN ×8 (01:45→21:36)
[2021-01-20] MEDS: Morphine 2 MG/ML SYRINGE IVPUSH PRN ×2 (02:17→13:17)
[2021-01-20] MEDS: OLANZapine 10 MG Vial IM PRN (02:30)
[2021-01-20] MEDS: LORazepam 2 MG/ML SDV IM PRN ×2 (06:00→10:05)
--- NOTE | 2021-01-20 07:05 | CT ---
HISTORY: Subdural hematoma follow-up. TECHNIQUE: Noncontrast head CT. COMPARISON: 01/19/2021. FINDINGS: No change in size or morphology of the small subdural hematoma overlying the left cerebral convexity. On axial image #19 of series 201, it measures 6 mm maximal thickness, unchanged. Minimal left to right midline shift is unchanged. There is moderate generalized cerebral and cerebellar volume loss. Areas of white matter low attenuation are nonspecific but likely reflect sequelae of chronic small vessel ischemic changes. There is stable ventricular size. There is no acute ischemic infarct. The mastoid air cells are clear. Mucosal thickening involving the right maxillary sinus. No skull fracture. IMPRESSION: 1. No change in small left-sided subdural hematoma. 2. No change in the minimal eevf-fs-nylar midline shift. 3. Moderate underlying chronic cerebral and cerebellar volume loss along with chronic small vessel ischemic changes as before. Please note that all CT scans at this facility use dose modulation, iterative reconstruction, and/or weight-based dosing when appropriate to reduce radiation dose to as low as reasonably achievable. Dictated by Remberto Ballard MD @ 01/20/2021 7:03:09 AM (Electronically Signed)
[2021-01-20 07:12] LABS: CARBON DIOXIDE,CO2 25.7 mmol/L (21.0-32.0); POTASSIUM,K 3.4 mmol/L (3.5-5.1)
--- NOTE | 2021-01-20 07:55 | PCM.PN ---
- General Info Date of Service: 01/20/21 Admission Dx/Problem (Free Text): Admission Diagnosis/Problem Admission Diagnosis/Problem Subdural hematoma Subjective Update: Patient sedated, arouses to pain. No family in room at rounds. Unable to obtain review of systems due to patient sedation - Patient Data Vitals - Most Recent: Last Vital Signs Temp 98.2 F 01/20/21 07:27 Pulse 67 01/20/21 07:27 Resp 20 01/20/21 07:27 BP 201/80 H 01/20/21 07:27 Pulse Ox 100 01/20/21 07:27 Weight - Most Recent: 51 kg I&O - Last 24 Hours: Intake & Output 01/19/21 01/20/21 01/20/21 22:59 06:59 14:59 Intake Total 1050 Balance 1050 Lab Results Last 24 Hours: Laboratory Results - last 24 hr 01/19/21 01/19/21 01/19/21 Range/Units 10:00 10:00 10:00 WBC 12.14 H (4.0-11.0) K/uL RBC 5.51 (4.50-5.90) M/uL Hgb 15.3 (13.0-17.0) g/dL Hct 45.7 (38.0-50.0) % MCV 82.9 (80.0-98.0) fL MCH 27.8 (27.0-32.0) pg MCHC 33.5 (31.0-37.0) g/dL RDW Std Deviation 46.9 (28.0-62.0) fl RDW Coeff of Mitch 16 H (11.0-15.0) % Plt Count 169 (150-400) K/uL MPV 11.90 (7.40-12.00) fL Neut % (Auto) 86.8 H (48.0-80.0) % Lymph % (Auto) 4.0 L (16.0-40.0) % [place] % (Auto) 8.9 (0.0-15.0) % Eos % (Auto) 0.1 (0.0-7.0) % Baso % (Auto) 0.2 (0.0-1.5) % Neut # (Auto) 10.5 H (1.4-5.7) K/uL Lymph # (Auto) 0.5 L (0.6-2.4) K/uL [place] # (Auto) 1.1 H (0.0-0.8) K/uL Eos # (Auto) 0.0 (0.0-0.7) K/uL Baso # (Auto) 0.0 (0.0-0.1) K/uL Nucleated RBC % 0.0 /100WBC Nucleated RBCs # 0 K/uL Sodium 146 (136-148) mmol/L Potassium 4.7 (3.5-5.1) mmol/L Chloride 109 H (98-107) mmol/L Carbon Dioxide 26.6 (21.0-32.0) mmol/L BUN 44 H (7.0-18.0) mg/dL Creatinine 1.8 H (0.8-1.3) mg/dL Est Cr Clr Drug Dosing TNP Estimated GFR (MDRD) 35.7 ml/min Glucose 127 H (74-106) mg/dL Lactic Acid (0.4-2.0) mmol/L Calcium 8.8 (8.5-10.1) mg/dL Magnesium 2.4 (1.8-2.4) mg/dL Total Bilirubin 0.9 (0.2-1.0) mg/dL AST 88 H (15-37) IU/L ALT 40 (14-63) IU/L Alkaline Phosphatase 74 (46-116) U/L Creatine Kinase 1588 H (26-308) U/L Troponin I < 0.050 (0.000-0.056) ng/mL Total Protein 6.7 (6.4-8.2) g/dL Albumin 3.4 (3.4-5.0) g/dL Globulin 3.3 (2.6-4.0) g/dL Albumin/Globulin Ratio 1.0 (0.9-1.6) Lipase 42 L (73-393) U/L TSH, Ultra Sensitive 2.20 (0.36-3.74) uIU/mL Urine Color Urine Appearance Urine pH (5.0-8.0) Ur Specific [place] (1.001-1.035) Urine Protein (NEGATIVE) mg/dL Urine Glucose (UA) (NEGATIVE) mg/dL Urine Ketones (NEGATIVE) mg/dL Urine Occult Blood (NEGATIVE) Urine Nitrite (NEGATIVE) Urine Bilirubin (NEGATIVE) Urine Urobilinogen (<2.0) EU/dL Ur Leukocyte Esterase (NEGATIVE) Urine RBC (0-2/HPF) Urine WBC (0-5/HPF) Ur Epithelial Cells (NONE-FEW) Urine Bacteria (NEGATIVE) SARS-CoV-2 RNA ([place]) NEGATIVE (NEGATIVE) 01/19/21 01/19/21 01/20/21 Range/Units 12:05 12:20 05:50 WBC 9.14 (4.0-11.0) K/uL RBC 4.83 (4.50-5.90) M/uL Hgb 13.4 (13.0-17.0) g/dL Hct 40.7 (38.0-50.0) % MCV 84.3 (80.0-98.0) fL MCH 27.7 (27.0-32.0) pg MCHC 32.9 (31.0-37.0) g/dL RDW Std Deviation 48.0 (28.0-62.0) fl RDW Coeff of Mitch 16 H (11.0-15.0) % Plt Count 148 L (150-400) K/uL MPV 12.00 (7.40-12.00) fL Neut % (Auto) 84.3 H (48.0-80.0) % Lymph % (Auto) 6.7 L (16.0-40.0) % [place] % (Auto) 8.6 (0.0-15.0) % Eos % (Auto) 0.3 (0.0-7.0) % Baso % (Auto) 0.1 (0.0-1.5) % Neut # (Auto) 7.7 H (1.4-5.7) K/uL Lymph # (Auto) 0.6 (0.6-2.4) K/uL [place] # (Auto) 0.8 (0.0-0.8) K/uL Eos # (Auto) 0.0 (0.0-0.7) K/uL Baso # (Auto) 0.0 (0.0-0.1) K/uL Nucleated RBC % 0.0 /100WBC Nucleated RBCs # 0 K/uL Sodium (136-148) mmol/L Potassium (3.5-5.1) mmol/L Chloride (98-107) mmol/L Carbon Dioxide (21.0-32.0) mmol/L BUN (7.0-18.0) mg/dL Creatinine (0.8-1.3) mg/dL Est Cr Clr Drug Dosing Estimated GFR (MDRD) ml/min Glucose (74-106) mg/dL Lactic Acid 1.1 (0.4-2.0) mmol/L Calcium (8.5-10.1) mg/dL Magnesium (1.8-2.4) mg/dL Total Bilirubin (0.2-1.0) mg/dL AST (15-37) IU/L ALT (14-63) IU/L Alkaline Phosphatase (46-116) U/L Creatine Kinase (26-308) U/L Troponin I (0.000-0.056) ng/mL Total Protein (6.4-8.2) g/dL Albumin (3.4-5.0) g/dL Globulin (2.6-4.0) g/dL Albumin/Globulin Ratio (0.9-1.6) Lipase (73-393) U/L TSH, Ultra Sensitive (0.36-3.74) uIU/mL Urine Color YELLOW Urine Appearance CLEAR Urine pH 6.0 (5.0-8.0) Ur Specific [place] 1.015 (1.001-1.035) Urine Protein TRACE H (NEGATIVE) mg/dL Urine Glucose (UA) NEGATIVE (NEGATIVE) mg/dL Urine Ketones TRACE H (NEGATIVE) mg/dL Urine Occult Blood SMALL H (NEGATIVE) Urine Nitrite NEGATIVE (NEGATIVE) Urine Bilirubin NEGATIVE (NEGATIVE) Urine Urobilinogen 0.2 (<2.0) EU/dL Ur Leukocyte Esterase NEGATIVE (NEGATIVE) Urine RBC 1-2 (0-2/HPF) Urine WBC 0-2 (0-5/HPF) Ur Epithelial Cells RARE (NONE-FEW) Urine Bacteria FEW (NEGATIVE) SARS-CoV-2 RNA ([place]) (NEGATIVE) 01/20/21 Range/Units 05:50 WBC (4.0-11.0) K/uL RBC (4.50-5.90) M/uL Hgb (13.0-17.0) g/dL Hct (38.0-50.0) % MCV (80.0-98.0) fL MCH (27.0-32.0) pg MCHC (31.0-37.0) g/dL RDW Std Deviation (28.0-62.0) fl RDW Coeff of Mitch (11.0-15.0) % Plt Count (150-400) K/uL MPV (7.40-12.00) fL Neut % (Auto) (48.0-80.0) % Lymph % (Auto) (16.0-40.0) % [place] % (Auto) (0.0-15.0) % Eos % (Auto) (0.0-7.0) % Baso % (Auto) (0.0-1.5) % Neut # (Auto) (1.4-5.7) K/uL Lymph # (Auto) (0.6-2.4) K/uL [place] # (Auto) (0.0-0.8) K/uL Eos # (Auto) (0.0-0.7) K/uL Baso # (Auto) (0.0-0.1) K/uL Nucleated RBC % /100WBC Nucleated RBCs # K/uL Sodium 149 H (136-148) mmol/L Potassium 3.4 L (3.5-5.1) mmol/L Chloride 116 H (98-107) mmol/L Carbon Dioxide 25.7 (21.0-32.0) mmol/L BUN 27 H (7.0-18.0) mg/dL Creatinine 1.3 (0.8-1.3) mg/dL Est Cr Clr Drug Dosing 27.79 Estimated GFR (MDRD) 52.0 ml/min Glucose 141 H (74-106) mg/dL Lactic Acid (0.4-2.0) mmol/L Calcium 7.8 L (8.5-10.1) mg/dL Magnesium 2.2 (1.8-2.4) mg/dL Total Bilirubin (0.2-1.0) mg/dL AST (15-37) IU/L ALT (14-63) IU/L Alkaline Phosphatase (46-116) U/L Creatine Kinase 479 H (26-308) U/L Troponin I (0.000-0.056) ng/mL Total Protein (6.4-8.2) g/dL Albumin (3.4-5.0) g/dL Globulin (2.6-4.0) g/dL Albumin/Globulin Ratio (0.9-1.6) Lipase (73-393) U/L TSH, Ultra Sensitive (0.36-3.74) uIU/mL Urine Color Urine Appearance Urine pH (5.0-8.0) Ur Specific [place] (1.001-1.035) Urine Protein (NEGATIVE) mg/dL Urine Glucose (UA) (NEGATIVE) mg/dL Urine Ketones (NEGATIVE) mg/dL Urine Occult Blood (NEGATIVE) Urine Nitrite (NEGATIVE) Urine Bilirubin (NEGATIVE) Urine Urobilinogen (<2.0) EU/dL Ur Leukocyte Esterase (NEGATIVE) Urine RBC (0-2/HPF) Urine WBC (0-5/HPF) Ur Epithelial Cells (NONE-FEW) Urine Bacteria (NEGATIVE) SARS-CoV-2 RNA ([place]) (NEGATIVE) Med Orders - Current: Current Medications Acetaminophen (Acetaminophen 650 Mg Supp) 650 mg RECTAL Q4H PRN PRN Reason: Pain (mild 1-3) Azithromycin 500 mg/ Sodium (Chloride) 250 mls @ 250 mls/hr IV Q24H [facility] Last Admin: 01/19/21 17:41 Dose: 250 mls/hr Documented by: Dextrose/Sodium Chloride (Dextrose 5%-Normal Saline) 1,000 mls @ 125 mls/hr IV Q8H [facility] Last Admin: 01/20/21 00:21 Dose: Not Given Documented by: Cefepime HCl 1 gm/ Premix 50 mls @ 100 mls/hr IV Q12H [facility] Last Admin: 01/20/21 00:20 Dose: 100 mls/hr Documented by: Labetalol HCl (Labetalol 100 Mg/20 Ml Mdv) 10 mg IVPUSH Q2H PRN PRN Reason: SBP>140 Last Admin: 01/20/21 06:00 Dose: 10 mg Documented by: Lorazepam (Lorazepam 2 Mg/Ml Sdv) 1 mg IM Q4H PRN PRN Reason: Agitation Last Admin: 01/20/21 06:00 Dose: 1 mg Documented by: Morphine Sulfate (Morphine 2 Mg/Ml Syringe) 2 mg IVPUSH Q2H PRN PRN Reason: Pain (severe 7-10) Last Admin: 01/20/21 02:17 Dose: 2 mg Documented by: Olanzapine (Olanzapine 10 Mg Vial) 5 mg IM Q4H PRN PRN Reason: Agitation Last Admin: 01/20/21 02:30 Dose: 5 mg Documented by: Ondansetron HCl (Ondansetron 4 Mg/2 Ml Sdv) 4 mg IVPUSH Q4H PRN PRN Reason: Nausea Sodium Chloride (Sodium Chloride 0.9% 2.5 Ml Syringe) 2.5 ml FLUSH ASDIRECTED PRN PRN Reason: Keep Vein Open Discontinued Medications Diphenhydramine HCl (Diphenhydramine 50 Mg/Ml Sdv) 50 mg IVPUSH ONETIME ONE Stop: 01/19/21 10:41 Last Admin: 01/19/21 10:45 Dose: 50 mg Documented by: Diphenhydramine HCl (Diphenhydramine 50 Mg/Ml Sdv) Confirm Administered Dose 50 mg .ROUTE .STK-MED ONE Stop: 01/19/21 10:43 Last Admin: 01/19/21 11:23 Dose: Not Given Documented by: Haloperidol Lactate (Haloperidol Lactate 5 Mg/Ml Sdv) 5 mg IM ONETIME ONE Stop: 01/19/21 09:33 Last Admin: 01/19/21 09:50 Dose: 5 mg Documented by: Hydralazine HCl (Hydralazine 20 Mg/Ml Sdv) 10 mg IVPUSH ONETIME ONE Stop: 01/20/21 00:04 Last Admin: 01/20/21 00:19 Dose: 10 mg Documented by: Hydralazine HCl (Hydralazine 20 Mg/Ml Sdv) Confirm Administered Dose 20 mg .ROUTE .STK-MED ONE Stop: 01/20/21 00:09 Last Admin: 01/20/21 00:21 Dose: Not Given Documented by: Sodium Chloride (Normal Saline) 1,000 mls @ 999 mls/hr IV .Bolus ONE Stop: 01/19/21 10:26 Last Admin: 01/19/21 09:51 Dose: 999 mls/hr Documented by: Sodium Chloride (Normal Saline) 1,000 mls @ 999 mls/hr IV .Bolus ONE Stop: 01/19/21 12:06 Last Admin: 01/19/21 11:54 Dose: 999 mls/hr Documented by: Cefepime HCl 1 gm/ Premix 50 mls @ 100 mls/hr IV ONETIME ONE Stop: 01/19/21 12:41 Last Admin: 01/19/21 13:29 Dose: 100 mls/hr Documented by: Dextrose/Sodium Chloride (Dextrose 5%-Normal Saline) 1,000 mls @ 150 mls/hr IV ASDIRECTED [facility] Last Admin: 01/19/21 13:29 Dose: 150 mls/hr Documented by: Labetalol HCl (Labetalol 100 Mg/20 Ml Mdv) 20 mg IVPUSH ONETIME ONE; Protocol Stop: 01/19/21 12:23 Last Admin: 01/19/21 13:12 Dose: Not Given Documented by: Labetalol HCl (Labetalol 100 Mg/20 Ml Mdv) 20 mg IVPUSH ONETIME ONE; Protocol Stop: 01/19/21 13:45 Last Admin: 01/19/21 13:49 Dose: 20 mg Documented by: Lorazepam (Lorazepam 2 Mg/Ml Sdv) 2 mg IVPUSH ONETIME ONE Stop: 01/19/21 10:41 Last Admin: 01/19/21 10:46 Dose: 2 mg Documented by: Lorazepam (Lorazepam 2 Mg/Ml Sdv) Confirm Administered Dose 2 mg .ROUTE .STK-MED ONE Stop: 01/19/21 10:44 Last Admin: 01/19/21 11:23 Dose: Not Given Documented by: - Exam Urinary Catheter Total Time: 0Days 0Hours General: Sedated Lungs: Clear to Auscultation, Normal Respiratory Effort Cardiovascular: Regular Rate, Regular Rhythm GI/Abdominal Exam: Normal Bowel Sounds, Soft, Non-Tender Extremities: Normal Inspection, Normal Range of Motion, Non-Tender, No Pedal Edema Wound/Incisions: Other (Erythema ecchymosis to arms abrasions to bilateral legs and arms) Neurological: No New Focal Deficit Psy/Mental Status: Alert, Normal Affect, Normal Mood - Patient Data Lab Results Last 24 hrs: Laboratory Results - last 24 hr 01/19/21 01/19/21 01/19/21 Range/Units 10:00 10:00 10:00 WBC 12.14 H (4.0-11.0) K/uL RBC 5.51 (4.50-5.90) M/uL Hgb 15.3 (13.0-17.0) g/dL Hct 45.7 (38.0-50.0) % MCV 82.9 (80.0-98.0) fL MCH 27.8 (27.0-32.0) pg MCHC 33.5 (31.0-37.0) g/dL RDW Std Deviation 46.9 (28.0-62.0) fl RDW Coeff of Mitch 16 H (11.0-15.0) % Plt Count 169 (150-400) K/uL MPV 11.90 (7.40-12.00) fL Neut % (Auto) 86.8 H (48.0-80.0) % Lymph % (Auto) 4.0 L (16.0-40.0) % [place] % (Auto) 8.9 (0.0-15.0) % Eos % (Auto) 0.1 (0.0-7.0) % Baso % (Auto) 0.2 (0.0-1.5) % Neut # (Auto) 10.5 H (1.4-5.7) K/uL Lymph # (Auto) 0.5 L (0.6-2.4) K/uL [place] # (Auto) 1.1 H (0.0-0.8) K/uL Eos # (Auto) 0.0 (0.0-0.7) K/uL Baso # (Auto) 0.0 (0.0-0.1) K/uL Nucleated RBC % 0.0 /100WBC Nucleated RBCs # 0 K/uL Sodium 146 (136-148) mmol/L Potassium 4.7 (3.5-5.1) mmol/L Chloride 109 H (98-107) mmol/L Carbon Dioxide 26.6 (21.0-32.0) mmol/L BUN 44 H (7.0-18.0) mg/dL Creatinine 1.8 H (0.8-1.3) mg/dL Est Cr Clr Drug Dosing TNP Estimated GFR (MDRD) 35.7 ml/min Glucose 127 H (74-106) mg/dL Lactic Acid (0.4-2.0) mmol/L Calcium 8.8 (8.5-10.1) mg/dL Magnesium 2.4 (1.8-2.4) mg/dL Total Bilirubin 0.9 (0.2-1.0) mg/dL AST 88 H (15-37) IU/L ALT 40 (14-63) IU/L Alkaline Phosphatase 74 (46-116) U/L Creatine Kinase 1588 H (26-308) U/L Troponin I < 0.050 (0.000-0.056) ng/mL Total Protein 6.7 (6.4-8.2) g/dL Albumin 3.4 (3.4-5.0) g/dL Globulin 3.3 (2.6-4.0) g/dL Albumin/Globulin Ratio 1.0 (0.9-1.6) Lipase 42 L (73-393) U/L TSH, Ultra Sensitive 2.20 (0.36-3.74) uIU/mL Urine Color Urine Appearance Urine pH (5.0-8.0) Ur Specific [place] (1.001-1.035) Urine Protein (NEGATIVE) mg/dL Urine Glucose (UA) (NEGATIVE) mg/dL Urine Ketones (NEGATIVE) mg/dL Urine Occult Blood (NEGATIVE) Urine Nitrite (NEGATIVE) Urine Bilirubin (NEGATIVE) Urine Urobilinogen (<2.0) EU/dL Ur Leukocyte Esterase (NEGATIVE) Urine RBC (0-2/HPF) Urine WBC (0-5/HPF) Ur Epithelial Cells (NONE-FEW) Urine Bacteria (NEGATIVE) SARS-CoV-2 RNA ([place]) NEGATIVE (NEGATIVE) 01/19/21 01/19/21 01/20/21 Range/Units 12:05 12:20 05:50 WBC 9.14 (4.0-11.0) K/uL RBC 4.83 (4.50-5.90) M/uL Hgb 13.4 (13.0-17.0) g/dL Hct 40.7 (38.0-50.0) % MCV 84.3 (80.0-98.0) fL MCH 27.7 (27.0-32.0) pg MCHC 32.9 (31.0-37.0) g/dL RDW Std Deviation 48.0 (28.0-62.0) fl RDW Coeff of Mitch 16 H (11.0-15.0) % Plt Count 148 L (150-400) K/uL MPV 12.00 (7.40-12.00) fL Neut % (Auto) 84.3 H (48.0-80.0) % Lymph % (Auto) 6.7 L (16.0-40.0) % [place] % (Auto) 8.6 (0.0-15.0) % Eos % (Auto) 0.3 (0.0-7.0) % Baso % (Auto) 0.1 (0.0-1.5) % Neut # (Auto) 7.7 H (1.4-5.7) K/uL Lymph # (Auto) 0.6 (0.6-2.4) K/uL [place] # (Auto) 0.8 (0.0-0.8) K/uL Eos # (Auto) 0.0 (0.0-0.7) K/uL Baso # (Auto) 0.0 (0.0-0.1) K/uL Nucleated RBC % 0.0 /100WBC Nucleated RBCs # 0 K/uL Sodium (136-148) mmol/L Potassium (3.5-5.1) mmol/L Chloride (98-107) mmol/L Carbon Dioxide (21.0-32.0) mmol/L BUN (7.0-18.0) mg/dL Creatinine (0.8-1.3) mg/dL Est Cr Clr Drug Dosing Estimated GFR (MDRD) ml/min Glucose (74-106) mg/dL Lactic Acid 1.1 (0.4-2.0) mmol/L Calcium (8.5-10.1) mg/dL Magnesium (1.8-2.4) mg/dL Total Bilirubin (0.2-1.0) mg/dL AST (15-37) IU/L ALT (14-63) IU/L Alkaline Phosphatase (46-116) U/L Creatine Kinase (26-308) U/L Troponin I (0.000-0.056) ng/mL Total Protein (6.4-8.2) g/dL Albumin (3.4-5.0) g/dL Globulin (2.6-4.0) g/dL Albumin/Globulin Ratio (0.9-1.6) Lipase (73-393) U/L TSH, Ultra Sensitive (0.36-3.74) uIU/mL Urine Color YELLOW Urine Appearance CLEAR Urine pH 6.0 (5.0-8.0) Ur Specific [place] 1.015 (1.001-1.035) Urine Protein TRACE H (NEGATIVE) mg/dL Urine Glucose (UA) NEGATIVE (NEGATIVE) mg/dL Urine Ketones TRACE H (NEGATIVE) mg/dL Urine Occult Blood SMALL H (NEGATIVE) Urine Nitrite NEGATIVE (NEGATIVE) Urine Bilirubin NEGATIVE (NEGATIVE) Urine Urobilinogen 0.2 (<2.0) EU/dL Ur Leukocyte Esterase NEGATIVE (NEGATIVE) Urine RBC 1-2 (0-2/HPF) Urine WBC 0-2 (0-5/HPF) Ur Epithelial Cells RARE (NONE-FEW) Urine Bacteria FEW (NEGATIVE) SARS-CoV-2 RNA ([place]) (NEGATIVE) 01/20/21 Range/Units 05:50 WBC (4.0-11.0) K/uL RBC (4.50-5.90) M/uL Hgb (13.0-17.0) g/dL Hct (38.0-50.0) % MCV (80.0-98.0) fL MCH (27.0-32.0) pg MCHC (31.0-37.0) g/dL RDW Std Deviation (28.0-62.0) fl RDW Coeff of Mitch (11.0-15.0) % Plt Count (150-400) K/uL MPV (7.40-12.00) fL Neut % (Auto) (48.0-80.0) % Lymph % (Auto) (16.0-40.0) % [place] % (Auto) (0.0-15.0) % Eos % (Auto) (0.0-7.0) % Baso % (Auto) (0.0-1.5) % Neut # (Auto) (1.4-5.7) K/uL Lymph # (Auto) (0.6-2.4) K/uL [place] # (Auto) (0.0-0.8) K/uL Eos # (Auto) (0.0-0.7) K/uL Baso # (Auto) (0.0-0.1) K/uL Nucleated RBC % /100WBC Nucleated RBCs # K/uL Sodium 149 H (136-148) mmol/L Potassium 3.4 L (3.5-5.1) mmol/L Chloride 116 H (98-107) mmol/L Carbon Dioxide 25.7 (21.0-32.0) mmol/L BUN 27 H (7.0-18.0) mg/dL Creatinine 1.3 (0.8-1.3) mg/dL Est Cr Clr Drug Dosing 27.79 Estimated GFR (MDRD) 52.0 ml/min Glucose 141 H (74-106) mg/dL Lactic Acid (0.4-2.0) mmol/L Calcium 7.8 L (8.5-10.1) mg/dL Magnesium 2.2 (1.8-2.4) mg/dL Total Bilirubin (0.2-1.0) mg/dL AST (15-37) IU/L ALT (14-63) IU/L Alkaline Phosphatase (46-116) U/L Creatine Kinase 479 H (26-308) U/L Troponin I (0.000-0.056) ng/mL Total Protein (6.4-8.2) g/dL Albumin (3.4-5.0) g/dL Globulin (2.6-4.0) g/dL Albumin/Globulin Ratio (0.9-1.6) Lipase (73-393) U/L TSH, Ultra Sensitive (0.36-3.74) uIU/mL Urine Color Urine Appearance Urine pH (5.0-8.0) Ur Specific [place] (1.001-1.035) Urine Protein (NEGATIVE) mg/dL Urine Glucose (UA) (NEGATIVE) mg/dL Urine Ketones (NEGATIVE) mg/dL Urine Occult Blood (NEGATIVE) Urine Nitrite (NEGATIVE) Urine Bilirubin (NEGATIVE) Urine Urobilinogen (<2.0) EU/dL Ur Leukocyte Esterase (NEGATIVE) Urine RBC (0-2/HPF) Urine WBC (0-5/HPF) Ur Epithelial Cells (NONE-FEW) Urine Bacteria (NEGATIVE) SARS-CoV-2 RNA ([place]) (NEGATIVE) Result Diagrams: 01/20/21 05:50 01/20/21 05:50 Sepsis Event Note - Evaluation Sepsis Screening Result: No Definite Risk - Focused Exam Vital Signs: Vital Signs Temp Pulse Resp BP Pulse Ox 01/20/21 07:27 98.2 F 67 20 201/80 H 100 01/20/21 06:30 97.2 F 70 20 197/84 H 95 01/20/21 05:58 67 153/69 H 01/20/21 05:00 72 172/71 H 01/20/21 04:30 66 144/58 H 01/20/21 04:00 69 160/76 H 01/20/21 03:37 72 174/59 H 01/20/21 03:24 66 146/103 H 01/20/21 03:00 96.8 F L 67 168/58 H 96 01/20/21 02:30 67 197/98 H 01/20/21 02:10 62 18 162/65 H 96 01/20/21 01:44 64 16 180/58 H 01/20/21 00:45 62 175/62 H 01/20/21 00:15 59 L 16 195/72 H 96 01/20/21 00:00 59 L 186/67 H 01/19/21 23:30 61 176/67 H 01/19/21 23:15 60 20 171/65 H 97 01/19/21 22:30 61 20 192/80 H 95 01/19/21 22:00 63 185/71 H 01/19/21 21:30 60 173/71 H 99 01/19/21 21:00 61 182/69 H 97 01/19/21 20:30 61 151/79 H 97 01/19/21 20:00 60 166/62 H 99 - Problem List & Annotations (1) Subdural hematoma SNOMED Code(s): 881390570 Code(s): S06.5X9A - TRAUM SUBDR HEM W LOC OF UNSP DURATION, INIT Status: Acute Current Visit: Yes (2) Failure to thrive SNOMED Code(s): 25006849 Code(s): IVD0761 - Status: Acute Current Visit: Yes Qualifiers: Failure to thrive age range: in adult Qualified Code(s): R62.7 - Adult failure to thrive (3) Pneumonia SNOMED Code(s): 917124901 Code(s): J18.9 - PNEUMONIA, UNSPECIFIED ORGANISM Status: Acute Current Visit: Yes Qualifiers: Pneumonia type: due to unspecified organism Laterality: right Lung location: lower lobe of lung Qualified Code(s): J18.9 - Pneumonia, unspecified organism (4) Palliative care status SNOMED Code(s): 711549333 Code(s): Z51.5 - ENCOUNTER FOR PALLIATIVE CARE Status: Acute Current Visit: Yes (5) Rhabdomyolysis SNOMED Code(s): 891287014 Code(s): M62.82 - RHABDOMYOLYSIS Status: Acute Current Visit: Yes Qualifiers: Rhabdomyolysis type: non-traumatic Qualified Code(s): M62.82 - Rhabdomyolysis (6) Hypertension SNOMED Code(s): 90412585 Code(s): I10 - ESSENTIAL (PRIMARY) HYPERTENSION Status: Chronic Current Visit: Yes (7) GERD (gastroesophageal reflux disease) SNOMED Code(s): 798018285 Code(s): K21.9 - GASTRO-ESOPHAGEAL REFLUX DISEASE WITHOUT ESOPHAGITIS Status: Chronic Current Visit: Yes (8) Dementia SNOMED Code(s): 07293350 Code(s): F03.90 - UNSPECIFIED DEMENTIA WITHOUT BEHAVIORAL DISTURBANCE Status: Chronic Current Visit: Yes (9) Rib fractures SNOMED Code(s): 5316013 Code(s): S22.49XA - MULTIPLE FRACTURES OF RIBS, UNSP SIDE, INIT FOR CLOS FX Status: Acute Current Visit: Yes Qualifiers: Encounter type: subsequent encounter Fracture type: closed Laterality: right - Problem List Review Problem List Initiated/Reviewed/Updated: Yes - My Orders Last 24 Hours: My Active Orders 01/19/21 Dinner Regular Diet [DIET] 01/19/21 16:04 Oxygen Therapy [RC] PRN VTE/DVT Education [RC] PER UNIT ROUTINE Vital Signs [RC] Q4H Acetaminophen [Tylenol] 650 mg RECTAL Q4H PRN Saline Lock Insert [OM.PC] Routine Resuscitation Status Routine 01/19/21 16:06 Antiembolic Devices [RC] PER UNIT ROUTINE Bedrest [RC] ASDIRECTED LORazepam [Ativan] 1 mg IM Q4H PRN Ondansetron [Zofran] 4 mg IVPUSH Q4H PRN Sodium Chloride 0.9% [Saline Flush] 2.5 ml FLUSH ASDIRECTED PRN Sequential Compression Device [OM.PC] Per Unit Routine 01/19/21 16:07 Blood Pressure [OM.PC] Routine 01/19/21 16:08 Labetalol [Normodyne] 10 mg IVPUSH Q2H PRN 01/19/21 16:09 OLANZapine [ZyPREXA] 5 mg IM Q4H PRN 01/19/21 16:12 Morphine 2 mg IVPUSH Q2H PRN 01/19/21 16:14 Monitoring Observation Level [BH] Routine 01/19/21 16:15 Dextrose 5%-0.9% NaCl [Dextrose 5%-Normal Saline] 1,000 ml IV Q8H 01/19/21 17:00 Azithromycin [Zithromax] 500 mg Sodium Chloride 0.9% [Normal Saline (AdvBag)] 250 ml IV Q24H 01/20/21 00:00 Cefepime [Maxipime in D5W 1 GM/50 ML] 1 gm Premix Bag 1 bag IV Q12H - Plan Plan:: This 89-year-old male admitted with subdural hematoma, CAP and failure to thrive 1. Subdural hematoma -Had long discussion with over the phone ultimate goal would be comfort she does not want any aggressive measures such as transfer, blood pressure medication in drip form in need of ICU management and no surgical intervention -Palliative care -CT of the head repeated this morning no change in small left subdural hematoma -Continue blood pressure control keeping systolic blood pressure under 140 with labetalol IV push -Keep flat for 48 hours per neurosurgery recommendations -Wall catheter for now due to strict bedrest -Olanzapine and Ativan as needed for agitation -Continue D5NS 100 mL/h, monitor sodium -One-to-one sitter -May need to consider halfway placement but had discussed this with ER they have been trying to put this off as there may not be financial means of placement. -Case management has discussed with we will continue to monitor over the next couple days. 2. CAP Blood cultures pending -Continue cefepime add azithromycin daily 3. Rhabdomyolysis -CPK 479 -continue IV fluids and recheck in a.m. 4. Failure to thrive -Patient has been refusing to eat or drink at home as well as refusing home medications -Monitor electrolytes daily VTE prophylaxis: SCDs only GI prophylaxis: Protonix CODE STATUS: DNR/DNI comfort measures Dispo: 2 to 3 days pending improvement possible pending placement Gayle contact number [phone]
[2021-01-20] MEDS: Azithromycin 500 MG in Sodium Chloride 0.9% 250 ML IV SCH (17:08)
[2021-01-20] MEDS: LORazepam 2 MG/ML SDV IVPUSH PRN (20:17)
[2021-01-20] MEDS ORDERED: hydrALAZINE 20 MG/ML SDV IVPUSH PRN (23:03)
[2021-01-21] MEDS: Cefepime 1 GM in Premix Bag 1 BAG IV SCH ×2 (00:06→12:47)
[2021-01-21] MEDS: Morphine 2 MG/ML SYRINGE IVPUSH PRN ×3 (01:18→22:09)
[2021-01-21] MEDS: Labetalol 100 MG/20 ML MDV IVPUSH PRN ×3 (01:25→06:21)
[2021-01-21] MEDS: LORazepam 2 MG/ML SDV IVPUSH PRN ×2 (02:08→07:36)
[2021-01-21] MEDS: OLANZapine 10 MG Vial IM PRN (03:04)
[2021-01-21] MEDS: Dextrose 5%-0.9% NaCl 1,000 ML IV SCH (05:37)
[2021-01-21 07:00] LABS: BLOOD UREA NITROGEN,BUN 19 mg/dL (7.0-18.0); CARBON DIOXIDE,CO2 26.3 mmol/L (21.0-32.0); CHLORIDE,CL 117 mmol/L (98-107); GLUCOSE RANDOM 124 mg/dL (74-106); POTASSIUM,K 3.3 mmol/L (3.5-5.1); SODIUM,NA 151 mmol/L (136-148)
--- NOTE | 2021-01-21 07:55 | PCM.PN ---
- General Info Date of Service: 01/21/21 Admission Dx/Problem (Free Text): Admission Diagnosis/Problem Admission Diagnosis/Problem Subdural hematoma Subjective Update: Patient continues to be somewhat sedated. Somewhat following commands and squeezing hands. Does not open eyes. Does not conversation. Otherwise unable to obtain ROS. at bedside discussed current plans to reduce sedation and allow him to sit up and move. We will assess how well he is alert and able to function to assess the ability for her to care for him at home versus providing care at a nursing facility. All questions and concerns addressed at this time. - Patient Data Vitals - Most Recent: Last Vital Signs Temp 97.1 F 01/21/21 04:00 Pulse 73 01/21/21 06:00 Resp 20 01/21/21 04:00 BP 173/71 H 01/21/21 06:00 Pulse Ox 90 L 01/21/21 04:00 Weight - Most Recent: 51 kg I&O - Last 24 Hours: Intake & Output 01/20/21 01/21/21 01/21/21 22:59 06:59 14:59 Intake Total 0 1100 Output Total 75 500 Balance -75 600 Lab Results Last 24 Hours: Laboratory Results - last 24 hr 01/21/21 01/21/21 Range/Units 05:12 05:12 WBC 7.92 (4.0-11.0) K/uL RBC 4.92 (4.50-5.90) M/uL Hgb 13.4 (13.0-17.0) g/dL Hct 41.6 (38.0-50.0) % MCV 84.6 (80.0-98.0) fL MCH 27.2 (27.0-32.0) pg MCHC 32.2 (31.0-37.0) g/dL RDW Std Deviation 48.2 (28.0-62.0) fl RDW Coeff of Mitch 16 H (11.0-15.0) % Plt Count 135 L (150-400) K/uL MPV 11.90 (7.40-12.00) fL Neut % (Auto) 82.2 H (48.0-80.0) % Lymph % (Auto) 7.4 L (16.0-40.0) % [place] % (Auto) 9.2 (0.0-15.0) % Eos % (Auto) 0.9 (0.0-7.0) % Baso % (Auto) 0.3 (0.0-1.5) % Neut # (Auto) 6.5 H (1.4-5.7) K/uL Lymph # (Auto) 0.6 (0.6-2.4) K/uL [place] # (Auto) 0.7 (0.0-0.8) K/uL Eos # (Auto) 0.1 (0.0-0.7) K/uL Baso # (Auto) 0.0 (0.0-0.1) K/uL Nucleated RBC % 0.0 /100WBC Nucleated RBCs # 0 K/uL Sodium 151 H (136-148) mmol/L Potassium 3.3 L (3.5-5.1) mmol/L Chloride 117 H (98-107) mmol/L Carbon Dioxide 26.3 (21.0-32.0) mmol/L BUN 19 H (7.0-18.0) mg/dL Creatinine 1.0 (0.8-1.3) mg/dL Est Cr Clr Drug Dosing 36.13 mL/min Estimated GFR (MDRD) > 60.0 ml/min Glucose 124 H (74-106) mg/dL Calcium 7.6 L (8.5-10.1) mg/dL Riley Results Last 24 Hours: Microbiology 01/19/21 12:55 Aerobic Blood Culture - Preliminary Blood - Venous - Lab Draw NO GROWTH AFTER 1 DAY Anaerobic Blood Culture - Preliminary NO GROWTH AFTER 1 DAY 01/19/21 12:50 Aerobic Blood Culture - Preliminary Blood - Venous NO GROWTH AFTER 1 DAY Anaerobic Blood Culture - Preliminary NO GROWTH AFTER 1 DAY Med Orders - Current: Current Medications Acetaminophen (Acetaminophen 650 Mg Supp) 650 mg RECTAL Q4H PRN PRN Reason: Pain (mild 1-3) Hydralazine HCl (Hydralazine 20 Mg/Ml Sdv) 10 mg IVPUSH Q6H PRN PRN Reason: Hypertension Last Admin: 01/20/21 23:29 Dose: 10 mg Documented by: Azithromycin 500 mg/ Sodium (Chloride) 250 mls @ 250 mls/hr IV Q24H [facility] Last Admin: 01/20/21 17:08 Dose: 250 mls/hr Documented by: Cefepime HCl 1 gm/ Premix 50 mls @ 100 mls/hr IV Q12H [facility] Last Admin: 01/21/21 00:06 Dose: 100 mls/hr Documented by: Dextrose/Sodium Chloride (Dextrose 5%-Normal Saline) 1,000 mls @ 100 mls/hr IV Q10H [facility] Last Admin: 01/21/21 05:37 Dose: 100 mls/hr Documented by: Labetalol HCl (Labetalol 100 Mg/20 Ml Mdv) 10 mg IVPUSH Q2H PRN PRN Reason: SBP>140 Last Admin: 01/21/21 06:21 Dose: 10 mg Documented by: Lorazepam (Lorazepam 2 Mg/Ml Sdv) 1 mg IVPUSH Q4H PRN PRN Reason: Agitation Last Admin: 01/21/21 07:36 Dose: 1 mg Documented by: Morphine Sulfate (Morphine 2 Mg/Ml Syringe) 2 mg IVPUSH Q2H PRN PRN Reason: Pain (severe 7-10) Last Admin: 01/21/21 01:18 Dose: 2 mg Documented by: Olanzapine (Olanzapine 10 Mg Vial) 5 mg IM Q4H PRN PRN Reason: Agitation Last Admin: 01/21/21 03:04 Dose: 5 mg Documented by: Ondansetron HCl (Ondansetron 4 Mg/2 Ml Sdv) 4 mg IVPUSH Q4H PRN PRN Reason: Nausea Sodium Chloride (Sodium Chloride 0.9% 2.5 Ml Syringe) 2.5 ml FLUSH ASDIRECTED PRN PRN Reason: Keep Vein Open Discontinued Medications Diphenhydramine HCl (Diphenhydramine 50 Mg/Ml Sdv) 50 mg IVPUSH ONETIME ONE Stop: 01/19/21 10:41 Last Admin: 01/19/21 10:45 Dose: 50 mg Documented by: Diphenhydramine HCl (Diphenhydramine 50 Mg/Ml Sdv) Confirm Administered Dose 50 mg .ROUTE .STK-MED ONE Stop: 01/19/21 10:43 Last Admin: 01/19/21 11:23 Dose: Not Given Documented by: Haloperidol Lactate (Haloperidol Lactate 5 Mg/Ml Sdv) 5 mg IM ONETIME ONE Stop: 01/19/21 09:33 Last Admin: 01/19/21 09:50 Dose: 5 mg Documented by: Hydralazine HCl (Hydralazine 20 Mg/Ml Sdv) 10 mg IVPUSH ONETIME ONE Stop: 01/20/21 00:04 Last Admin: 01/20/21 00:19 Dose: 10 mg Documented by: Hydralazine HCl (Hydralazine 20 Mg/Ml Sdv) Confirm Administered Dose 20 mg .ROUTE .STK-MED ONE Stop: 01/20/21 00:09 Last Admin: 01/20/21 00:21 Dose: Not Given Documented by: Sodium Chloride (Normal Saline) 1,000 mls @ 999 mls/hr IV .Bolus ONE Stop: 01/19/21 10:26 Last Admin: 01/19/21 09:51 Dose: 999 mls/hr Documented by: Sodium Chloride (Normal Saline) 1,000 mls @ 999 mls/hr IV .Bolus ONE Stop: 01/19/21 12:06 Last Admin: 01/19/21 11:54 Dose: 999 mls/hr Documented by: Cefepime HCl 1 gm/ Premix 50 mls @ 100 mls/hr IV ONETIME ONE Stop: 01/19/21 12:41 Last Admin: 01/19/21 13:29 Dose: 100 mls/hr Documented by: Dextrose/Sodium Chloride (Dextrose 5%-Normal Saline) 1,000 mls @ 150 mls/hr IV ASDIRECTED [facility] Last Admin: 01/19/21 13:29 Dose: 150 mls/hr Documented by: Dextrose/Sodium Chloride (Dextrose 5%-Normal Saline) 1,000 mls @ 125 mls/hr IV Q8H [facility] Last Admin: 01/20/21 08:00 Dose: 125 mls/hr Documented by: Labetalol HCl (Labetalol 100 Mg/20 Ml Mdv) 20 mg IVPUSH ONETIME ONE; Protocol Stop: 01/19/21 12:23 Last Admin: 01/19/21 13:12 Dose: Not Given Documented by: Labetalol HCl (Labetalol 100 Mg/20 Ml Mdv) 20 mg IVPUSH ONETIME ONE; Protocol Stop: 01/19/21 13:45 Last Admin: 01/19/21 13:49 Dose: 20 mg Documented by: Lorazepam (Lorazepam 2 Mg/Ml Sdv) 2 mg IVPUSH ONETIME ONE Stop: 01/19/21 10:41 Last Admin: 01/19/21 10:46 Dose: 2 mg Documented by: Lorazepam (Lorazepam 2 Mg/Ml Sdv) Confirm Administered Dose 2 mg .ROUTE .STK-MED ONE Stop: 01/19/21 10:44 Last Admin: 01/19/21 11:23 Dose: Not Given Documented by: Lorazepam (Lorazepam 2 Mg/Ml Sdv) 1 mg IM Q4H PRN PRN Reason: Agitation Last Admin: 01/20/21 10:05 Dose: 1 mg Documented by: - Exam Urinary Catheter Total Time: 1Days 8Hours General: Sedated HEENT: Pupils Equal (1 mm), Pupils Reactive Lungs: Clear to Auscultation, Normal Respiratory Effort Cardiovascular: Regular Rate, Regular Rhythm Extremities: Normal Inspection, Normal Range of Motion, Non-Tender, No Pedal Edema Skin: Ecchymosis, Other (Healing abrasions to upper and lower extremities along with healing bruises) - Patient Data Lab Results Last 24 hrs: Laboratory Results - last 24 hr 01/21/21 01/21/21 Range/Units 05:12 05:12 WBC 7.92 (4.0-11.0) K/uL RBC 4.92 (4.50-5.90) M/uL Hgb 13.4 (13.0-17.0) g/dL Hct 41.6 (38.0-50.0) % MCV 84.6 (80.0-98.0) fL MCH 27.2 (27.0-32.0) pg MCHC 32.2 (31.0-37.0) g/dL RDW Std Deviation 48.2 (28.0-62.0) fl RDW Coeff of Mitch 16 H (11.0-15.0) % Plt Count 135 L (150-400) K/uL MPV 11.90 (7.40-12.00) fL Neut % (Auto) 82.2 H (48.0-80.0) % Lymph % (Auto) 7.4 L (16.0-40.0) % [place] % (Auto) 9.2 (0.0-15.0) % Eos % (Auto) 0.9 (0.0-7.0) % Baso % (Auto) 0.3 (0.0-1.5) % Neut # (Auto) 6.5 H (1.4-5.7) K/uL Lymph # (Auto) 0.6 (0.6-2.4) K/uL [place] # (Auto) 0.7 (0.0-0.8) K/uL Eos # (Auto) 0.1 (0.0-0.7) K/uL Baso # (Auto) 0.0 (0.0-0.1) K/uL Nucleated RBC % 0.0 /100WBC Nucleated RBCs # 0 K/uL Sodium 151 H (136-148) mmol/L Potassium 3.3 L (3.5-5.1) mmol/L Chloride 117 H (98-107) mmol/L Carbon Dioxide 26.3 (21.0-32.0) mmol/L BUN 19 H (7.0-18.0) mg/dL Creatinine 1.0 (0.8-1.3) mg/dL Est Cr Clr Drug Dosing 36.13 mL/min Estimated GFR (MDRD) > 60.0 ml/min Glucose 124 H (74-106) mg/dL Calcium 7.6 L (8.5-10.1) mg/dL Result Diagrams: 01/21/21 05:12 01/21/21 05:12 Riley Results Last 24 hrs: Microbiology 01/19/21 12:55 Aerobic Blood Culture - Preliminary Blood - Venous - Lab Draw NO GROWTH AFTER 1 DAY Anaerobic Blood Culture - Preliminary NO GROWTH AFTER 1 DAY 01/19/21 12:50 Aerobic Blood Culture - Preliminary Blood - Venous NO GROWTH AFTER 1 DAY Anaerobic Blood Culture - Preliminary NO GROWTH AFTER 1 DAY Sepsis Event Note - Evaluation Sepsis Screening Result: No Definite Risk - Focused Exam Vital Signs: Vital Signs Temp Pulse Resp BP Pulse Ox 01/21/21 06:00 73 173/71 H 01/21/21 04:00 97.1 F 88 20 180/60 H 90 L 01/21/21 03:00 97.4 F 84 20 185/76 H 96 01/21/21 01:26 92 192/132 H 01/21/21 00:00 67 110/68 01/20/21 23:30 96.1 F L 61 20 185/65 H 95 01/20/21 21:59 97.5 F 60 20 170/66 H 94 L 01/20/21 21:15 194/72 H - Problem List & Annotations (1) Subdural hematoma SNOMED Code(s): 268174730 Code(s): S06.5X9A - TRAUM SUBDR HEM W LOC OF UNSP DURATION, INIT Status: Acute Current Visit: Yes (2) Failure to thrive SNOMED Code(s): 32992662 Code(s): UIU4632 - Status: Acute Current Visit: Yes Qualifiers: Failure to thrive age range: in adult Qualified Code(s): R62.7 - Adult failure to thrive (3) Pneumonia SNOMED Code(s): 279491009 Code(s): J18.9 - PNEUMONIA, UNSPECIFIED ORGANISM Status: Acute Current Visit: Yes Qualifiers: Pneumonia type: due to unspecified organism Laterality: right Lung location: lower lobe of lung Qualified Code(s): J18.9 - Pneumonia, unspecified organism (4) Palliative care status SNOMED Code(s): 975494014 Code(s): Z51.5 - ENCOUNTER FOR PALLIATIVE CARE Status: Acute Current Visit: Yes (5) Rhabdomyolysis SNOMED Code(s): 811129974 Code(s): M62.82 - RHABDOMYOLYSIS Status: Acute Current Visit: Yes Qualifiers: Rhabdomyolysis type: non-traumatic Qualified Code(s): M62.82 - Rhabdomyolysis (6) Hypertension SNOMED Code(s): 58448154 Code(s): I10 - ESSENTIAL (PRIMARY) HYPERTENSION Status: Chronic Current Visit: Yes (7) GERD (gastroesophageal reflux disease) SNOMED Code(s): 762667578 Code(s): K21.9 - GASTRO-ESOPHAGEAL REFLUX DISEASE WITHOUT ESOPHAGITIS Status: Chronic Current Visit: Yes (8) Dementia SNOMED Code(s): 49252113 Code(s): F03.90 - UNSPECIFIED DEMENTIA WITHOUT BEHAVIORAL DISTURBANCE Status: Chronic Current Visit: Yes (9) Rib fractures SNOMED Code(s): 4356591 Code(s): S22.49XA - MULTIPLE FRACTURES OF RIBS, UNSP SIDE, INIT FOR CLOS FX Status: Acute Current Visit: Yes Qualifiers: Encounter type: subsequent encounter Fracture type: closed Laterality: right - Problem List Review Problem List Initiated/Reviewed/Updated: Yes - My Orders Last 24 Hours: My Active Orders 01/20/21 10:15 Dextrose 5%-0.9% NaCl [Dextrose 5%-Normal Saline] 1,000 ml IV Q10H 01/20/21 16:03 LORazepam [Ativan] 1 mg IVPUSH Q4H PRN - Plan Plan:: This 89-year-old male admitted with subdural hematoma, CAP and failure to thrive 1. Subdural hematoma -Palliative care -Continue blood pressure control keeping systolic blood pressure under 140 with enalapril IV until patient able to take oral medications -Able to be sitting upright today -Wall catheter for now due to strict bedrest -Discontinue olanzapine and Ativan to monitor level of consciousness and ability for to care for patient. -One-to-one sitter -Case management has discussed with we will continue to monitor over the next couple days. 2. CAP -Blood cultures pending -Continue cefepime add azithromycin daily 4. Failure to thrive -Patient has been refusing to eat or drink at home as well as refusing home medications -Monitor electrolytes daily Encourage oral intake when more alert. VTE prophylaxis: SCDs only GI prophylaxis: Protonix CODE STATUS: DNR/DNI comfort measures Dispo: 2 to 3 days pending improvement possible pending placement [facility] contact number [phone], Updated today at bedside 01/21/2021
[2021-01-21] MEDS ORDERED: Sodium Chloride 0.45% 500 ML IV ONE (16:04)
[2021-01-21] MEDS: Azithromycin 500 MG in Sodium Chloride 0.9% 250 ML IV SCH (16:44)
[2021-01-22] MEDS: Cefepime 1 GM in Premix Bag 1 BAG IV SCH ×3 (01:02→23:27)
[2021-01-22] MEDS: Enalaprilat 1.25 MG/ML SDV IVPUSH PRN ×3 (01:18→23:30)
[2021-01-22] MEDS: Morphine 2 MG/ML SYRINGE IVPUSH PRN ×3 (03:41→10:58)
[2021-01-22 06:58] LABS: CARBON DIOXIDE,CO2 27.8 mmol/L (21.0-32.0); POTASSIUM,K 3.7 mmol/L (3.5-5.1)
--- NOTE | 2021-01-22 07:50 | PCM.PN ---
- General Info Date of Service: 01/22/21 Admission Dx/Problem (Free Text): Admission Diagnosis/Problem Admission Diagnosis/Problem Subdural hematoma Subjective Update: Opens eyes but not to commands. Does not follow commands. Patient moaning groaning and appears to be in pain likely secondary to rib fractures. On second rounds with Dr. Martinez we did discuss hospice with his We will plan to arrange hospice where possible including potentially at home as patient is concerned about financial responsibility with placement within a snf. - Patient Data Vitals - Most Recent: Last Vital Signs Temp 98 F 01/22/21 01:07 Pulse 86 01/22/21 03:00 Resp 19 01/22/21 03:00 BP 120/82 01/22/21 03:00 Pulse Ox 98 01/22/21 03:00 Weight - Most Recent: 51 kg I&O - Last 24 Hours: Intake & Output 01/21/21 01/22/21 01/22/21 22:59 06:59 14:59 Intake Total 511 Output Total 175 500 Balance -175 11 Lab Results Last 24 Hours: Laboratory Results - last 24 hr 01/22/21 01/22/21 Range/Units 05:11 05:11 WBC 9.87 (4.0-11.0) K/uL RBC 5.06 (4.50-5.90) M/uL Hgb 13.8 (13.0-17.0) g/dL Hct 42.6 (38.0-50.0) % MCV 84.2 (80.0-98.0) fL MCH 27.3 (27.0-32.0) pg MCHC 32.4 (31.0-37.0) g/dL RDW Std Deviation 48.2 (28.0-62.0) fl RDW Coeff of Mitch 16 H (11.0-15.0) % Plt Count 140 L (150-400) K/uL MPV 11.20 (7.40-12.00) fL Neut % (Auto) 83.3 H (48.0-80.0) % Lymph % (Auto) 7.4 L (16.0-40.0) % [place] % (Auto) 8.1 (0.0-15.0) % Eos % (Auto) 0.9 (0.0-7.0) % Baso % (Auto) 0.3 (0.0-1.5) % Neut # (Auto) 8.2 H (1.4-5.7) K/uL Lymph # (Auto) 0.7 (0.6-2.4) K/uL [place] # (Auto) 0.8 (0.0-0.8) K/uL Eos # (Auto) 0.1 (0.0-0.7) K/uL Baso # (Auto) 0.0 (0.0-0.1) K/uL Nucleated RBC % 0.0 /100WBC Nucleated RBCs # 0 K/uL Sodium 149 H (136-148) mmol/L Potassium 3.7 (3.5-5.1) mmol/L Chloride 115 H (98-107) mmol/L Carbon Dioxide 27.8 (21.0-32.0) mmol/L BUN 23 H (7.0-18.0) mg/dL Creatinine 1.2 (0.8-1.3) mg/dL Est Cr Clr Drug Dosing 30.10 mL/min Estimated GFR (MDRD) 57.0 ml/min Glucose 101 (74-106) mg/dL Calcium 7.8 L (8.5-10.1) mg/dL Magnesium 2.0 (1.8-2.4) mg/dL Riley Results Last 24 Hours: Microbiology 01/19/21 12:55 Aerobic Blood Culture - Preliminary Blood - Venous - Lab Draw NO GROWTH AFTER 2 DAYS Anaerobic Blood Culture - Preliminary NO GROWTH AFTER 2 DAYS 01/19/21 12:50 Aerobic Blood Culture - Preliminary Blood - Venous NO GROWTH AFTER 2 DAYS Anaerobic Blood Culture - Preliminary NO GROWTH AFTER 2 DAYS Med Orders - Current: Current Medications Acetaminophen (Acetaminophen 650 Mg Supp) 650 mg RECTAL Q4H PRN PRN Reason: Pain (mild 1-3) Enalaprilat (Enalaprilat 1.25 Mg/Ml Sdv) 1.25 mg IVPUSH Q6H PRN PRN Reason: SBP >140 Last Admin: 01/22/21 01:18 Dose: 1.25 mg Documented by: Azithromycin 500 mg/ Sodium (Chloride) 250 mls @ 250 mls/hr IV Q24H [facility] Last Admin: 01/21/21 16:44 Dose: 250 mls/hr Documented by: Cefepime HCl 1 gm/ Premix 50 mls @ 100 mls/hr IV Q12H [facility] Last Admin: 01/22/21 01:02 Dose: 100 mls/hr Documented by: Morphine Sulfate (Morphine 2 Mg/Ml Syringe) 2 mg IVPUSH Q2H PRN PRN Reason: Pain (severe 7-10) Last Admin: 01/22/21 06:49 Dose: 2 mg Documented by: Ondansetron HCl (Ondansetron 4 Mg/2 Ml Sdv) 4 mg IVPUSH Q4H PRN PRN Reason: Nausea Sodium Chloride (Sodium Chloride 0.9% 2.5 Ml Syringe) 2.5 ml FLUSH ASDIRECTED PRN PRN Reason: Keep Vein Open Discontinued Medications Diphenhydramine HCl (Diphenhydramine 50 Mg/Ml Sdv) 50 mg IVPUSH ONETIME ONE Stop: 01/19/21 10:41 Last Admin: 01/19/21 10:45 Dose: 50 mg Documented by: Diphenhydramine HCl (Diphenhydramine 50 Mg/Ml Sdv) Confirm Administered Dose 50 mg .ROUTE .STK-MED ONE Stop: 01/19/21 10:43 Last Admin: 01/19/21 11:23 Dose: Not Given Documented by: Haloperidol Lactate (Haloperidol Lactate 5 Mg/Ml Sdv) 5 mg IM ONETIME ONE Stop: 01/19/21 09:33 Last Admin: 01/19/21 09:50 Dose: 5 mg Documented by: Hydralazine HCl (Hydralazine 20 Mg/Ml Sdv) 10 mg IVPUSH ONETIME ONE Stop: 01/20/21 00:04 Last Admin: 01/20/21 00:19 Dose: 10 mg Documented by: Hydralazine HCl (Hydralazine 20 Mg/Ml Sdv) Confirm Administered Dose 20 mg .ROUTE .STK-MED ONE Stop: 01/20/21 00:09 Last Admin: 01/20/21 00:21 Dose: Not Given Documented by: Hydralazine HCl (Hydralazine 20 Mg/Ml Sdv) 10 mg IVPUSH Q6H PRN PRN Reason: Hypertension Last Admin: 01/20/21 23:29 Dose: 10 mg Documented by: Sodium Chloride (Normal Saline) 1,000 mls @ 999 mls/hr IV .Bolus ONE Stop: 01/19/21 10:26 Last Admin: 01/19/21 09:51 Dose: 999 mls/hr Documented by: Sodium Chloride (Normal Saline) 1,000 mls @ 999 mls/hr IV .Bolus ONE Stop: 01/19/21 12:06 Last Admin: 01/19/21 11:54 Dose: 999 mls/hr Documented by: Cefepime HCl 1 gm/ Premix 50 mls @ 100 mls/hr IV ONETIME ONE Stop: 01/19/21 12:41 Last Admin: 01/19/21 13:29 Dose: 100 mls/hr Documented by: Dextrose/Sodium Chloride (Dextrose 5%-Normal Saline) 1,000 mls @ 150 mls/hr IV ASDIRECTED [facility] Last Admin: 01/19/21 13:29 Dose: 150 mls/hr Documented by: Dextrose/Sodium Chloride (Dextrose 5%-Normal Saline) 1,000 mls @ 125 mls/hr IV Q8H [facility] Last Admin: 01/20/21 08:00 Dose: 125 mls/hr Documented by: Dextrose/Sodium Chloride (Dextrose 5%-Normal Saline) 1,000 mls @ 100 mls/hr IV Q10H [facility] Last Admin: 01/21/21 05:37 Dose: 100 mls/hr Documented by: Sodium Chloride (Sodium Chloride 0.45%) 500 mls @ 50 mls/hr IV ONETIME ONE Stop: 01/22/21 02:03 Last Admin: 01/21/21 16:45 Dose: 50 mls/hr Documented by: Labetalol HCl (Labetalol 100 Mg/20 Ml Mdv) 20 mg IVPUSH ONETIME ONE; Protocol Stop: 01/19/21 12:23 Last Admin: 01/19/21 13:12 Dose: Not Given Documented by: Labetalol HCl (Labetalol 100 Mg/20 Ml Mdv) 20 mg IVPUSH ONETIME ONE; Protocol Stop: 01/19/21 13:45 Last Admin: 01/19/21 13:49 Dose: 20 mg Documented by: Labetalol HCl (Labetalol 100 Mg/20 Ml Mdv) 10 mg IVPUSH Q2H PRN PRN Reason: SBP>140 Last Admin: 01/21/21 06:21 Dose: 10 mg Documented by: Lorazepam (Lorazepam 2 Mg/Ml Sdv) 2 mg IVPUSH ONETIME ONE Stop: 01/19/21 10:41 Last Admin: 01/19/21 10:46 Dose: 2 mg Documented by: Lorazepam (Lorazepam 2 Mg/Ml Sdv) Confirm Administered Dose 2 mg .ROUTE .STK-MED ONE Stop: 01/19/21 10:44 Last Admin: 01/19/21 11:23 Dose: Not Given Documented by: Lorazepam (Lorazepam 2 Mg/Ml Sdv) 1 mg IM Q4H PRN PRN Reason: Agitation Last Admin: 01/20/21 10:05 Dose: 1 mg Documented by: Lorazepam (Lorazepam 2 Mg/Ml Sdv) 1 mg IVPUSH Q4H PRN PRN Reason: Agitation Last Admin: 01/21/21 07:36 Dose: 1 mg Documented by: Olanzapine (Olanzapine 10 Mg Vial) 5 mg IM Q4H PRN PRN Reason: Agitation Last Admin: 01/21/21 03:04 Dose: 5 mg Documented by: - Exam Urinary Catheter Total Time: 2Days 11Hours General: Obtunded HEENT: Pupils Equal, Pupils Reactive Lungs: Clear to Auscultation, Normal Respiratory Effort Cardiovascular: Regular Rate, Regular Rhythm Extremities: Normal Inspection, Normal Range of Motion, Non-Tender, No Pedal Edema Neurological: Other (Does not follow commands) - Patient Data Lab Results Last 24 hrs: Laboratory Results - last 24 hr 01/22/21 01/22/21 Range/Units 05:11 05:11 WBC 9.87 (4.0-11.0) K/uL RBC 5.06 (4.50-5.90) M/uL Hgb 13.8 (13.0-17.0) g/dL Hct 42.6 (38.0-50.0) % MCV 84.2 (80.0-98.0) fL MCH 27.3 (27.0-32.0) pg MCHC 32.4 (31.0-37.0) g/dL RDW Std Deviation 48.2 (28.0-62.0) fl RDW Coeff of Mitch 16 H (11.0-15.0) % Plt Count 140 L (150-400) K/uL MPV 11.20 (7.40-12.00) fL Neut % (Auto) 83.3 H (48.0-80.0) % Lymph % (Auto) 7.4 L (16.0-40.0) % [place] % (Auto) 8.1 (0.0-15.0) % Eos % (Auto) 0.9 (0.0-7.0) % Baso % (Auto) 0.3 (0.0-1.5) % Neut # (Auto) 8.2 H (1.4-5.7) K/uL Lymph # (Auto) 0.7 (0.6-2.4) K/uL [place] # (Auto) 0.8 (0.0-0.8) K/uL Eos # (Auto) 0.1 (0.0-0.7) K/uL Baso # (Auto) 0.0 (0.0-0.1) K/uL Nucleated RBC % 0.0 /100WBC Nucleated RBCs # 0 K/uL Sodium 149 H (136-148) mmol/L Potassium 3.7 (3.5-5.1) mmol/L Chloride 115 H (98-107) mmol/L Carbon Dioxide 27.8 (21.0-32.0) mmol/L BUN 23 H (7.0-18.0) mg/dL Creatinine 1.2 (0.8-1.3) mg/dL Est Cr Clr Drug Dosing 30.10 mL/min Estimated GFR (MDRD) 57.0 ml/min Glucose 101 (74-106) mg/dL Calcium 7.8 L (8.5-10.1) mg/dL Magnesium 2.0 (1.8-2.4) mg/dL Result Diagrams: 01/22/21 05:11 01/22/21 05:11 Riley Results Last 24 hrs: Microbiology 01/19/21 12:55 Aerobic Blood Culture - Preliminary Blood - Venous - Lab Draw NO GROWTH AFTER 2 DAYS Anaerobic Blood Culture - Preliminary NO GROWTH AFTER 2 DAYS 01/19/21 12:50 Aerobic Blood Culture - Preliminary Blood - Venous NO GROWTH AFTER 2 DAYS Anaerobic Blood Culture - Preliminary NO GROWTH AFTER 2 DAYS Sepsis Event Note - Evaluation Sepsis Screening Result: No Definite Risk - Focused Exam Vital Signs: Vital Signs Temp Pulse Resp BP BP BP Pulse Ox 01/22/21 03:00 86 19 120/82 98 01/22/21 01:18 173/99 H 01/22/21 01:07 98 F 103 H 20 173/99 H 100 01/21/21 20:00 97.6 F 81 19 127/57 L 99 - Problem List & Annotations (1) Subdural hematoma SNOMED Code(s): 288369606 Code(s): S06.5X9A - TRAUM SUBDR HEM W LOC OF UNSP DURATION, INIT Status: Acute Current Visit: Yes (2) Failure to thrive SNOMED Code(s): 66752630 Code(s): FIF2231 - Status: Acute Current Visit: Yes Qualifiers: Failure to thrive age range: in adult Qualified Code(s): R62.7 - Adult failure to thrive (3) Pneumonia SNOMED Code(s): 311506182 Code(s): J18.9 - PNEUMONIA, UNSPECIFIED ORGANISM Status: Acute Current Visit: Yes Qualifiers: Pneumonia type: due to unspecified organism Laterality: right Lung location: lower lobe of lung Qualified Code(s): J18.9 - Pneumonia, unspecified organism (4) Palliative care status SNOMED Code(s): 062009101 Code(s): Z51.5 - ENCOUNTER FOR PALLIATIVE CARE Status: Acute Current Visit: Yes (5) Rhabdomyolysis SNOMED Code(s): 721091984 Code(s): M62.82 - RHABDOMYOLYSIS Status: Acute Current Visit: Yes Qualifiers: Rhabdomyolysis type: non-traumatic Qualified Code(s): M62.82 - Rhabdomyolysis (6) Hypertension SNOMED Code(s): 08527369 Code(s): I10 - ESSENTIAL (PRIMARY) HYPERTENSION Status: Chronic Current Visit: Yes (7) GERD (gastroesophageal reflux disease) SNOMED Code(s): 584677386 Code(s): K21.9 - GASTRO-ESOPHAGEAL REFLUX DISEASE WITHOUT ESOPHAGITIS Status: Chronic Current Visit: Yes (8) Dementia SNOMED Code(s): 89260230 Code(s): F03.90 - UNSPECIFIED DEMENTIA WITHOUT BEHAVIORAL DISTURBANCE Status: Chronic Current Visit: Yes (9) Rib fractures SNOMED Code(s): 9996154 Code(s): S22.49XA - MULTIPLE FRACTURES OF RIBS, UNSP SIDE, INIT FOR CLOS FX Status: Acute Current Visit: Yes Qualifiers: Encounter type: subsequent encounter Fracture type: closed Laterality: right - Problem List Review Problem List Initiated/Reviewed/Updated: Yes - My Orders Last 24 Hours: My Active Orders 01/21/21 09:37 Enalaprilat [Vasotec IV] 1.25 mg IVPUSH Q6H PRN 01/21/21 09:39 Up ad Shilpa [RC] ASDIRECTED 01/23/21 05:11 BASIC METABOLIC PANEL,BMP [CHEM] AM CBC WITH AUTO DIFF [HEME] AM MAGNESIUM [CHEM] AM - Plan Plan:: This 89-year-old male admitted with subdural hematoma, CAP and failure to thrive 1. Subdural hematoma -Palliative care -Continue blood pressure control keeping systolic blood pressure under 140 with enalapril IV until patient able to take oral medications -Able to be sitting upright today -Wall catheter for now due to strict bedrest -Case management has discussed with we will continue to monitor over the next couple days. -Plan for more hospice based care. -Continue Ativan sublingual 1 mg as needed -Continue morphine 5 mg sublingual as needed pain -Discussed hospice with and hospice did speak with regarding care at home. We will see if [facility] would be able to accommodate patient and the financial responsibility to the patient and his . Otherwise plan is likely home on Monday with hospice pending he does well over the weekend with administration of sublingual morphine and Ativan over the weekend. 2. CAP -Blood cultures negative -Continue cefepime add azithromycin daily 4. Failure to thrive -Patient not eating and drinking even when given small amounts of fluids via syringe he spits them out VTE prophylaxis: SCDs only GI prophylaxis: Protonix CODE STATUS: DNR/DNI comfort measures Dispo: Likely home Monday with hospice versus snf. [facility]le contact number [phone], Updated today at bedside 01/22/2021
[2021-01-22] MEDS ORDERED: LORazepam 2 MG/ML SDV IVPUSH PRN (10:34)
[2021-01-22] MEDS ORDERED: LORazepam Conc Solution 2 MG/ML 30 ML Bottle SL PRN ×2 (12:43→12:52)
[2021-01-22] MEDS: LORazepam Conc Solution 2 MG/ML 30 ML Bottle SL PRN ×2 (17:18→22:47)
[2021-01-22] MEDS: Azithromycin 500 MG in Sodium Chloride 0.9% 250 ML IV SCH (17:27)
[2021-01-22] MEDS: Morphine 10 MG/0.5 ML Oral Syringe SL PRN ×2 (18:00→21:58)
[2021-01-23] MEDS: Morphine 10 MG/0.5 ML Oral Syringe SL PRN ×3 (04:24→17:13)
[2021-01-23] MEDS: LORazepam Conc Solution 2 MG/ML 30 ML Bottle SL PRN ×2 (06:35→13:00)
[2021-01-23] MEDS: Enalaprilat 1.25 MG/ML SDV IVPUSH PRN ×3 (07:53→23:56)
[2021-01-23] MEDS: Cefepime 1 GM in Premix Bag 1 BAG IV SCH (12:54)
--- NOTE | 2021-01-23 14:25 | PCM.PN ---
- General Info Date of Service: 01/23/21 Admission Dx/Problem (Free Text): Admission Diagnosis/Problem Admission Diagnosis/Problem Subdural hematoma Subjective Update: Opens eyes but not to commands. Does not follow commands. Patient currently resting comfortably, has been started on comfort measures per 's request Functional Status: Reports: Urinating. Denies: Tolerating Diet, Ambulating - Review of Systems Systems Review Comment:: Unable to obtain review of symptoms due to patient's somnolence - Patient Data Vitals - Most Recent: Last Vital Signs Temp 37.0 C 01/23/21 11:00 Pulse 88 01/23/21 11:00 Resp 14 01/23/21 11:00 BP 144/74 H 01/23/21 11:00 Pulse Ox 100 01/23/21 11:00 Weight - Most Recent: 51 kg I&O - Last 24 Hours: Intake & Output 01/22/21 01/23/21 01/23/21 22:59 06:59 14:59 Intake Total 100 Output Total 550 550 Balance -550 -450 Riley Results Last 24 Hours: Microbiology 01/19/21 12:55 Aerobic Blood Culture - Preliminary Blood - Venous - Lab Draw NO GROWTH AFTER 4 DAYS Anaerobic Blood Culture - Preliminary NO GROWTH AFTER 4 DAYS 01/19/21 12:50 Aerobic Blood Culture - Preliminary Blood - Venous NO GROWTH AFTER 4 DAYS Anaerobic Blood Culture - Preliminary NO GROWTH AFTER 4 DAYS Med Orders - Current: Current Medications Acetaminophen (Acetaminophen 650 Mg Supp) 650 mg RECTAL Q4H PRN PRN Reason: Pain (mild 1-3) Enalaprilat (Enalaprilat 1.25 Mg/Ml Sdv) 1.25 mg IVPUSH Q6H PRN PRN Reason: SBP >140 Last Admin: 01/23/21 07:53 Dose: 1.25 mg Documented by: Azithromycin 500 mg/ Sodium (Chloride) 250 mls @ 250 mls/hr IV Q24H [facility] Last Admin: 01/22/21 17:27 Dose: 250 mls/hr Documented by: Cefepime HCl 1 gm/ Premix 50 mls @ 100 mls/hr IV Q12H [facility] Last Admin: 01/23/21 12:54 Dose: 100 mls/hr Documented by: Lorazepam (Lorazepam Conc Solution 2 Mg/Ml 30 Ml Bottle) 1 mg SL Q4H PRN PRN Reason: agitation/anxiety Last Admin: 01/23/21 13:00 Dose: 1 mg Documented by: Morphine Sulfate (Morphine 10 Mg/0.5 Ml Oral Syringe) 5 mg SL Q2H PRN PRN Reason: pain/dyspnea/agitation Last Admin: 01/23/21 08:50 Dose: 5 mg Documented by: Ondansetron HCl (Ondansetron 4 Mg/2 Ml Sdv) 4 mg IVPUSH Q4H PRN PRN Reason: Nausea Sodium Chloride (Sodium Chloride 0.9% 2.5 Ml Syringe) 2.5 ml FLUSH ASDIRECTED PRN PRN Reason: Keep Vein Open Discontinued Medications Diphenhydramine HCl (Diphenhydramine 50 Mg/Ml Sdv) 50 mg IVPUSH ONETIME ONE Stop: 01/19/21 10:41 Last Admin: 01/19/21 10:45 Dose: 50 mg Documented by: Diphenhydramine HCl (Diphenhydramine 50 Mg/Ml Sdv) Confirm Administered Dose 50 mg .ROUTE .STK-MED ONE Stop: 01/19/21 10:43 Last Admin: 01/19/21 11:23 Dose: Not Given Documented by: Haloperidol Lactate (Haloperidol Lactate 5 Mg/Ml Sdv) 5 mg IM ONETIME ONE Stop: 01/19/21 09:33 Last Admin: 01/19/21 09:50 Dose: 5 mg Documented by: Hydralazine HCl (Hydralazine 20 Mg/Ml Sdv) 10 mg IVPUSH ONETIME ONE Stop: 01/20/21 00:04 Last Admin: 01/20/21 00:19 Dose: 10 mg Documented by: Hydralazine HCl (Hydralazine 20 Mg/Ml Sdv) Confirm Administered Dose 20 mg .ROUTE .STK-MED ONE Stop: 01/20/21 00:09 Last Admin: 01/20/21 00:21 Dose: Not Given Documented by: Hydralazine HCl (Hydralazine 20 Mg/Ml Sdv) 10 mg IVPUSH Q6H PRN PRN Reason: Hypertension Last Admin: 01/20/21 23:29 Dose: 10 mg Documented by: Sodium Chloride (Normal Saline) 1,000 mls @ 999 mls/hr IV .Bolus ONE Stop: 01/19/21 10:26 Last Admin: 01/19/21 09:51 Dose: 999 mls/hr Documented by: Sodium Chloride (Normal Saline) 1,000 mls @ 999 mls/hr IV .Bolus ONE Stop: 01/19/21 12:06 Last Admin: 01/19/21 11:54 Dose: 999 mls/hr Documented by: Cefepime HCl 1 gm/ Premix 50 mls @ 100 mls/hr IV ONETIME ONE Stop: 01/19/21 12:41 Last Admin: 01/19/21 13:29 Dose: 100 mls/hr Documented by: Dextrose/Sodium Chloride (Dextrose 5%-Normal Saline) 1,000 mls @ 150 mls/hr IV ASDIRECTED [facility] Last Admin: 01/19/21 13:29 Dose: 150 mls/hr Documented by: Dextrose/Sodium Chloride (Dextrose 5%-Normal Saline) 1,000 mls @ 125 mls/hr IV Q8H [facility] Last Admin: 01/20/21 08:00 Dose: 125 mls/hr Documented by: Dextrose/Sodium Chloride (Dextrose 5%-Normal Saline) 1,000 mls @ 100 mls/hr IV Q10H [facility] Last Admin: 01/21/21 05:37 Dose: 100 mls/hr Documented by: Sodium Chloride (Sodium Chloride 0.45%) 500 mls @ 50 mls/hr IV ONETIME ONE Stop: 01/22/21 02:03 Last Admin: 01/21/21 16:45 Dose: 50 mls/hr Documented by: Labetalol HCl (Labetalol 100 Mg/20 Ml Mdv) 20 mg IVPUSH ONETIME ONE; Protocol Stop: 01/19/21 12:23 Last Admin: 01/19/21 13:12 Dose: Not Given Documented by: Labetalol HCl (Labetalol 100 Mg/20 Ml Mdv) 20 mg IVPUSH ONETIME ONE; Protocol Stop: 01/19/21 13:45 Last Admin: 01/19/21 13:49 Dose: 20 mg Documented by: Labetalol HCl (Labetalol 100 Mg/20 Ml Mdv) 10 mg IVPUSH Q2H PRN PRN Reason: SBP>140 Last Admin: 01/21/21 06:21 Dose: 10 mg Documented by: Lorazepam (Lorazepam 2 Mg/Ml Sdv) 2 mg IVPUSH ONETIME ONE Stop: 01/19/21 10:41 Last Admin: 01/19/21 10:46 Dose: 2 mg Documented by: Lorazepam (Lorazepam 2 Mg/Ml Sdv) Confirm Administered Dose 2 mg .ROUTE .STK-MED ONE Stop: 01/19/21 10:44 Last Admin: 01/19/21 11:23 Dose: Not Given Documented by: Lorazepam (Lorazepam 2 Mg/Ml Sdv) 1 mg IM Q4H PRN PRN Reason: Agitation Last Admin: 01/20/21 10:05 Dose: 1 mg Documented by: Lorazepam (Lorazepam 2 Mg/Ml Sdv) 1 mg IVPUSH Q4H PRN PRN Reason: Agitation Last Admin: 01/21/21 07:36 Dose: 1 mg Documented by: Lorazepam (Lorazepam 2 Mg/Ml Sdv) 1 mg IVPUSH Q4H PRN PRN Reason: agitation/anxiety Last Admin: 01/22/21 10:57 Dose: 1 mg Documented by: Lorazepam (Lorazepam Conc Solution 2 Mg/Ml 30 Ml Bottle) 1 mg SL Q4H PRN PRN Reason: agitation/anxiety Lorazepam (Lorazepam Conc Solution 2 Mg/Ml 30 Ml Bottle) 0 mg SL Q4H PRN PRN Reason: agitation/anxiety Morphine Sulfate (Morphine 2 Mg/Ml Syringe) 2 mg IVPUSH Q2H PRN PRN Reason: Pain/agitation/dyspnea Last Admin: 01/22/21 10:58 Dose: 2 mg Documented by: Olanzapine (Olanzapine 10 Mg Vial) 5 mg IM Q4H PRN PRN Reason: Agitation Last Admin: 01/21/21 03:04 Dose: 5 mg Documented by: - Exam Quality Assessment: Supplemental Oxygen Urinary Catheter Total Time: 2Days 11Hours General: No Acute Distress. No: Alert, Oriented Neck: Supple Lungs: Clear to Auscultation, Normal Respiratory Effort Cardiovascular: Regular Rate, Regular Rhythm GI/Abdominal Exam: Normal Bowel Sounds, Soft, Non-Tender - Patient Data Result Diagrams: 01/22/21 05:11 01/22/21 05:11 Riley Results Last 24 hrs: Microbiology 01/19/21 12:55 Aerobic Blood Culture - Preliminary Blood - Venous - Lab Draw NO GROWTH AFTER 4 DAYS Anaerobic Blood Culture - Preliminary NO GROWTH AFTER 4 DAYS 01/19/21 12:50 Aerobic Blood Culture - Preliminary Blood - Venous NO GROWTH AFTER 4 DAYS Anaerobic Blood Culture - Preliminary NO GROWTH AFTER 4 DAYS Sepsis Event Note - Evaluation Sepsis Screening Result: No Definite Risk - Focused Exam Vital Signs: Vital Signs Temp Pulse Resp BP BP Pulse Ox Pulse Ox 01/23/21 11:00 37.0 C 88 14 144/74 H 100 01/23/21 07:53 195/105 H 01/23/21 07:21 36.2 C 54 L 16 194/105 H 95 01/23/21 06:00 36.6 C 58 L 16 137/78 97 98 - Problem List & Annotations (1) Midline shift of brain due to hematoma SNOMED Code(s): 542425604 Code(s): G93.89 - OTHER SPECIFIED DISORDERS OF BRAIN; S06.2X0S - DIFFUSE TBI W/O LOSS OF CONSCIOUSNESS, SEQUELA Status: Acute Current Visit: Yes (2) Failure to thrive SNOMED Code(s): 90850127 Code(s): QJF7555 - Status: Acute Current Visit: Yes Qualifiers: Failure to thrive age range: in adult Qualified Code(s): R62.7 - Adult failure to thrive (3) Palliative care status SNOMED Code(s): 995051418 Code(s): Z51.5 - ENCOUNTER FOR PALLIATIVE CARE Status: Acute Current Visit: Yes (4) Rib fractures SNOMED Code(s): 2382820 Code(s): S22.49XA - MULTIPLE FRACTURES OF RIBS, UNSP SIDE, INIT FOR CLOS FX Status: Acute Current Visit: Yes Qualifiers: Encounter type: subsequent encounter Fracture type: closed Laterality: right (5) Subdural hematoma SNOMED Code(s): 596166019 Code(s): S06.5X9A - TRAUM SUBDR HEM W LOC OF UNSP DURATION, INIT Status: Acute Current Visit: Yes (6) Dementia SNOMED Code(s): 43564967 Code(s): F03.90 - UNSPECIFIED DEMENTIA WITHOUT BEHAVIORAL DISTURBANCE Status: Chronic Current Visit: Yes (7) GERD (gastroesophageal reflux disease) SNOMED Code(s): 183368508 Code(s): K21.9 - GASTRO-ESOPHAGEAL REFLUX DISEASE WITHOUT ESOPHAGITIS Status: Chronic Current Visit: Yes (8) Hypertension SNOMED Code(s): 71814140 Code(s): I10 - ESSENTIAL (PRIMARY) HYPERTENSION Status: Chronic Current Visit: Yes - Problem List Review Problem List Initiated/Reviewed/Updated: Yes - Plan Plan:: This 89-year-old male admitted with subdural hematoma, CAP and failure to thrive 1. Subdural hematoma -Palliative care -Continue blood pressure control keeping systolic blood pressure under 140 with enalapril IV -Wall catheter for now due to strict bedrest -Plan for more hospice based care. -Continue Ativan sublingual 1 mg as needed -Continue morphine 5 mg sublingual as needed pain -Discussed hospice with and hospice did speak with regarding care at home. We will see if [facility] would be able to accommodate patient and the financial responsibility to the patient and his . Otherwise plan is likely home on Monday with hospice pending he does well over the weekend with administration of sublingual morphine and Ativan over the weekend. 2. CAP -Blood cultures negative -Continue cefepime add azithromycin daily 4. Failure to thrive -Patient not eating and drinking even when given small amounts of fluids via syringe he spits them out VTE prophylaxis: SCDs only GI prophylaxis: Protonix CODE STATUS: DNR/DNI comfort measures Dispo: Likely home Monday with hospice versus jail. Gayle contact number [phone], Updated today at bedside 01/22/2021
[2021-01-23] MEDS: Azithromycin 500 MG in Sodium Chloride 0.9% 250 ML IV SCH (17:14)
[2021-01-24] MEDS: Cefepime 1 GM in Premix Bag 1 BAG IV SCH ×3 (00:03→23:39)
[2021-01-24] MEDS: LORazepam Conc Solution 2 MG/ML 30 ML Bottle SL PRN ×3 (00:06→15:27)
[2021-01-24] MEDS: Morphine 10 MG/0.5 ML Oral Syringe SL PRN ×3 (05:49→23:34)
[2021-01-24] MEDS ORDERED: Lactated Ringers 500 ML IV ONE (14:32)
--- NOTE | 2021-01-24 14:36 | PCM.PN ---
- General Info Date of Service: 01/24/21 Admission Dx/Problem (Free Text): Admission Diagnosis/Problem Admission Diagnosis/Problem Subdural hematoma Subjective Update: Seen at bedside, is not opening his eyes to verbal stimulus breathing comfortably vitals are stable but patient has minimal oral intake Functional Status: Reports: Urinating. Denies: Tolerating Diet, Ambulating - Review of Systems Systems Review Comment:: Unable to obtain review of systems due to patient's clinical condition - Patient Data Vitals - Most Recent: Last Vital Signs Temp 36.3 C 01/23/21 23:45 Pulse 68 01/23/21 23:45 Resp 15 01/23/21 23:45 BP 124/88 01/24/21 11:58 Pulse Ox 98 01/24/21 06:00 Weight - Most Recent: 51 kg I&O - Last 24 Hours: Intake & Output 01/23/21 01/24/21 01/24/21 22:59 06:59 14:59 Intake Total 240 Output Total 850 Balance -610 Riley Results Last 24 Hours: Microbiology 01/19/21 12:55 Aerobic Blood Culture - Final Blood - Venous - Lab Draw NO GROWTH AFTER 5 DAYS Anaerobic Blood Culture - Final NO GROWTH AFTER 5 DAYS 01/19/21 12:50 Aerobic Blood Culture - Final Blood - Venous NO GROWTH AFTER 5 DAYS Anaerobic Blood Culture - Final NO GROWTH AFTER 5 DAYS Med Orders - Current: Current Medications Acetaminophen (Acetaminophen 650 Mg Supp) 650 mg RECTAL Q4H PRN PRN Reason: Pain (mild 1-3) Enalaprilat (Enalaprilat 1.25 Mg/Ml Sdv) 1.25 mg IVPUSH Q6H PRN PRN Reason: SBP >140 Last Admin: 01/23/21 23:56 Dose: 1.25 mg Documented by: Azithromycin 500 mg/ Sodium (Chloride) 250 mls @ 250 mls/hr IV Q24H [facility] Last Admin: 01/23/21 17:14 Dose: 250 mls/hr Documented by: Cefepime HCl 1 gm/ Premix 50 mls @ 100 mls/hr IV Q12H [facility] Last Admin: 01/24/21 11:35 Dose: 100 mls/hr Documented by: Lorazepam (Lorazepam Conc Solution 2 Mg/Ml 30 Ml Bottle) 1 mg SL Q4H PRN PRN Reason: agitation/anxiety Last Admin: 01/24/21 09:14 Dose: 1 mg Documented by: Morphine Sulfate (Morphine 10 Mg/0.5 Ml Oral Syringe) 5 mg SL Q2H PRN PRN Reason: pain/dyspnea/agitation Last Admin: 01/24/21 11:32 Dose: 5 mg Documented by: Ondansetron HCl (Ondansetron 4 Mg/2 Ml Sdv) 4 mg IVPUSH Q4H PRN PRN Reason: Nausea Sodium Chloride (Sodium Chloride 0.9% 2.5 Ml Syringe) 2.5 ml FLUSH ASDIRECTED PRN PRN Reason: Keep Vein Open Discontinued Medications Diphenhydramine HCl (Diphenhydramine 50 Mg/Ml Sdv) 50 mg IVPUSH ONETIME ONE Stop: 01/19/21 10:41 Last Admin: 01/19/21 10:45 Dose: 50 mg Documented by: Diphenhydramine HCl (Diphenhydramine 50 Mg/Ml Sdv) Confirm Administered Dose 50 mg .ROUTE .STK-MED ONE Stop: 01/19/21 10:43 Last Admin: 01/19/21 11:23 Dose: Not Given Documented by: Haloperidol Lactate (Haloperidol Lactate 5 Mg/Ml Sdv) 5 mg IM ONETIME ONE Stop: 01/19/21 09:33 Last Admin: 01/19/21 09:50 Dose: 5 mg Documented by: Hydralazine HCl (Hydralazine 20 Mg/Ml Sdv) 10 mg IVPUSH ONETIME ONE Stop: 01/20/21 00:04 Last Admin: 01/20/21 00:19 Dose: 10 mg Documented by: Hydralazine HCl (Hydralazine 20 Mg/Ml Sdv) Confirm Administered Dose 20 mg .ROUTE .STK-MED ONE Stop: 01/20/21 00:09 Last Admin: 01/20/21 00:21 Dose: Not Given Documented by: Hydralazine HCl (Hydralazine 20 Mg/Ml Sdv) 10 mg IVPUSH Q6H PRN PRN Reason: Hypertension Last Admin: 01/20/21 23:29 Dose: 10 mg Documented by: Sodium Chloride (Normal Saline) 1,000 mls @ 999 mls/hr IV .Bolus ONE Stop: 01/19/21 10:26 Last Admin: 01/19/21 09:51 Dose: 999 mls/hr Documented by: Sodium Chloride (Normal Saline) 1,000 mls @ 999 mls/hr IV .Bolus ONE Stop: 01/19/21 12:06 Last Admin: 01/19/21 11:54 Dose: 999 mls/hr Documented by: Cefepime HCl 1 gm/ Premix 50 mls @ 100 mls/hr IV ONETIME ONE Stop: 01/19/21 12:41 Last Admin: 01/19/21 13:29 Dose: 100 mls/hr Documented by: Dextrose/Sodium Chloride (Dextrose 5%-Normal Saline) 1,000 mls @ 150 mls/hr IV ASDIRECTED [facility] Last Admin: 01/19/21 13:29 Dose: 150 mls/hr Documented by: Dextrose/Sodium Chloride (Dextrose 5%-Normal Saline) 1,000 mls @ 125 mls/hr IV Q8H [facility] Last Admin: 01/20/21 08:00 Dose: 125 mls/hr Documented by: Dextrose/Sodium Chloride (Dextrose 5%-Normal Saline) 1,000 mls @ 100 mls/hr IV Q10H [facility] Last Admin: 01/21/21 05:37 Dose: 100 mls/hr Documented by: Sodium Chloride (Sodium Chloride 0.45%) 500 mls @ 50 mls/hr IV ONETIME ONE Stop: 01/22/21 02:03 Last Admin: 01/21/21 16:45 Dose: 50 mls/hr Documented by: Labetalol HCl (Labetalol 100 Mg/20 Ml Mdv) 20 mg IVPUSH ONETIME ONE; Protocol Stop: 01/19/21 12:23 Last Admin: 01/19/21 13:12 Dose: Not Given Documented by: Labetalol HCl (Labetalol 100 Mg/20 Ml Mdv) 20 mg IVPUSH ONETIME ONE; Protocol Stop: 01/19/21 13:45 Last Admin: 01/19/21 13:49 Dose: 20 mg Documented by: Labetalol HCl (Labetalol 100 Mg/20 Ml Mdv) 10 mg IVPUSH Q2H PRN PRN Reason: SBP>140 Last Admin: 01/21/21 06:21 Dose: 10 mg Documented by: Lorazepam (Lorazepam 2 Mg/Ml Sdv) 2 mg IVPUSH ONETIME ONE Stop: 01/19/21 10:41 Last Admin: 01/19/21 10:46 Dose: 2 mg Documented by: Lorazepam (Lorazepam 2 Mg/Ml Sdv) Confirm Administered Dose 2 mg .ROUTE .STK-MED ONE Stop: 01/19/21 10:44 Last Admin: 01/19/21 11:23 Dose: Not Given Documented by: Lorazepam (Lorazepam 2 Mg/Ml Sdv) 1 mg IM Q4H PRN PRN Reason: Agitation Last Admin: 01/20/21 10:05 Dose: 1 mg Documented by: Lorazepam (Lorazepam 2 Mg/Ml Sdv) 1 mg IVPUSH Q4H PRN PRN Reason: Agitation Last Admin: 01/21/21 07:36 Dose: 1 mg Documented by: Lorazepam (Lorazepam 2 Mg/Ml Sdv) 1 mg IVPUSH Q4H PRN PRN Reason: agitation/anxiety Last Admin: 01/22/21 10:57 Dose: 1 mg Documented by: Lorazepam (Lorazepam Conc Solution 2 Mg/Ml 30 Ml Bottle) 1 mg SL Q4H PRN PRN Reason: agitation/anxiety Lorazepam (Lorazepam Conc Solution 2 Mg/Ml 30 Ml Bottle) 0 mg SL Q4H PRN PRN Reason: agitation/anxiety Morphine Sulfate (Morphine 2 Mg/Ml Syringe) 2 mg IVPUSH Q2H PRN PRN Reason: Pain/agitation/dyspnea Last Admin: 01/22/21 10:58 Dose: 2 mg Documented by: Olanzapine (Olanzapine 10 Mg Vial) 5 mg IM Q4H PRN PRN Reason: Agitation Last Admin: 01/21/21 03:04 Dose: 5 mg Documented by: - Exam Quality Assessment: Supplemental Oxygen Urinary Catheter Total Time: 4Days 23Hours General: No: Alert, Oriented Neck: Trachea Midline. No: JVD Lungs: Normal Respiratory Effort, Decreased Breath Sounds Cardiovascular: Regular Rate, Regular Rhythm GI/Abdominal Exam: Normal Bowel Sounds, Soft, Non-Tender Extremities: Normal Inspection, Non-Tender, No Pedal Edema - Patient Data Result Diagrams: 01/22/21 05:11 01/22/21 05:11 Riley Results Last 24 hrs: Microbiology 01/19/21 12:55 Aerobic Blood Culture - Final Blood - Venous - Lab Draw NO GROWTH AFTER 5 DAYS Anaerobic Blood Culture - Final NO GROWTH AFTER 5 DAYS 01/19/21 12:50 Aerobic Blood Culture - Final Blood - Venous NO GROWTH AFTER 5 DAYS Anaerobic Blood Culture - Final NO GROWTH AFTER 5 DAYS Sepsis Event Note - Evaluation Sepsis Screening Result: No Definite Risk - Focused Exam Vital Signs: Vital Signs BP Pulse Ox 01/24/21 11:58 124/88 01/24/21 10:00 136/81 01/24/21 06:00 98 - Problem List & Annotations (1) Midline shift of brain due to hematoma SNOMED Code(s): 467959945 Code(s): G93.89 - OTHER SPECIFIED DISORDERS OF BRAIN; S06.2X0S - DIFFUSE TBI W/O LOSS OF CONSCIOUSNESS, SEQUELA Status: Acute Current Visit: Yes (2) Failure to thrive SNOMED Code(s): 28513318 Code(s): FBL8828 - Status: Acute Current Visit: Yes Qualifiers: Failure to thrive age range: in adult Qualified Code(s): R62.7 - Adult failure to thrive (3) Palliative care status SNOMED Code(s): 056710364 Code(s): Z51.5 - ENCOUNTER FOR PALLIATIVE CARE Status: Acute Current Visit: Yes (4) Rib fractures SNOMED Code(s): 4198162 Code(s): S22.49XA - MULTIPLE FRACTURES OF RIBS, UNSP SIDE, INIT FOR CLOS FX Status: Acute Current Visit: Yes Qualifiers: Encounter type: subsequent encounter Fracture type: closed Laterality: right (5) Subdural hematoma SNOMED Code(s): 153498862 Code(s): S06.5X9A - TRAUM SUBDR HEM W LOC OF UNSP DURATION, INIT Status: Acute Current Visit: Yes (6) Dementia SNOMED Code(s): 33506404 Code(s): F03.90 - UNSPECIFIED DEMENTIA WITHOUT BEHAVIORAL DISTURBANCE Status: Chronic Current Visit: Yes (7) GERD (gastroesophageal reflux disease) SNOMED Code(s): 309788787 Code(s): K21.9 - GASTRO-ESOPHAGEAL REFLUX DISEASE WITHOUT ESOPHAGITIS Status: Chronic Current Visit: Yes (8) Hypertension SNOMED Code(s): 43883562 Code(s): I10 - ESSENTIAL (PRIMARY) HYPERTENSION Status: Chronic Current Visit: Yes - Problem List Review Problem List Initiated/Reviewed/Updated: Yes - My Orders Last 24 Hours: My Active Orders 01/24/21 14:32 Lactated Ringers [Ringers, Lactated] 500 ml IV .BOLUS - Plan Plan:: This 89-year-old male admitted with subdural hematoma, CAP and failure to thrive 1. Subdural hematoma -Palliative care -Continue blood pressure control keeping systolic blood pressure under 140 with enalapril IV -Wall catheter for now due to strict bedrest -Plan for more hospice based care. -Continue Ativan sublingual 1 mg as needed -Continue morphine 5 mg sublingual as needed pain -Discussed hospice with and hospice did speak with regarding care at home. We will see if [facility] would be able to accommodate patient and the financial responsibility to the patient and his . Otherwise plan is likely home on Monday with hospice pending he does well over the weekend with administration of sublingual morphine and Ativan over the weekend. 2. CAP -Blood cultures negative -Continue cefepime add azithromycin daily, day 5 today 4. Failure to thrive -Patient not eating and drinking even when given small amounts of fluids via syringe he spits them out, will give half a liter IV fluids today to maintain hydration Daily labs are not being obtained due to comfort measures to avoid poking and discomfort VTE prophylaxis: SCDs only GI prophylaxis: Protonix CODE STATUS: DNR/DNI comfort measures Dispo: Likely home Monday with hospice versus alf. Gayle contact number [phone], Updated today at bedside 01/22/2021
[2021-01-24] MEDS: Azithromycin 500 MG in Sodium Chloride 0.9% 250 ML IV SCH (17:37)
[2021-01-25] MEDS: LORazepam Conc Solution 2 MG/ML 30 ML Bottle SL PRN ×3 (06:23→13:58)
[2021-01-25] MEDS: Morphine 10 MG/0.5 ML Oral Syringe SL PRN ×2 (10:04→11:56)
[2021-01-25] MEDS: Cefepime 1 GM in Premix Bag 1 BAG IV SCH (11:55)
--- NOTE | 2021-01-25 12:10 | PCM.DCSUM1 ---
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 SNOMED Code(s): 391402688 ICD Code: G93.89 - OTHER SPECIFIED DISORDERS OF BRAIN; S06.2X0S - DIFFUSE TBI W/O LOSS OF CONSCIOUSNESS, SEQUELA Status: Acute Current Visit: Yes (2) Failure to thrive SNOMED Code(s): 31176844 ICD Code: [id number] - Status: Acute Current Visit: Yes Qualifiers: Failure to thrive age range: in adult Qualified Code(s): R62.7 - Adult fa ilure to thrive (3) Palliative care status SNOMED Code(s): 997513001 ICD Code: Z51.5 - ENCOUNTER FOR PALLIATIVE CARE Status: Acute Current Visit: Yes (4) Rib fractures SNOMED Code(s): 4110433 ICD Code: S22.49XA - MULTIPLE FRACTURES OF RIBS, UNSP SIDE, INIT FOR CLOS FX Status: Acute Current Visit: Yes Qualifiers: Encounter type: subsequent encounter Fracture type: closed Laterality: right (5) Subdural hematoma SNOMED Code(s): 202725142 ICD Code: S06.5X9A - TRAUM SUBDR HEM W LOC OF UNSP DURATION, INIT Status: Acute Current Visit: Yes (6) Dementia SNOMED Code(s): 64478976 ICD Code: F03.90 - UNSPECIFIED DEMENTIA WITHOUT BEHAVIORAL DISTURBANCE Status: Chronic Current Visit: Yes (7) GERD (gastroesophageal reflux disease) SNOMED Code(s): 164213021 ICD Code: K21.9 - GASTRO-ESOPHAGEAL REFLUX DISEASE WITHOUT ESOPHAGITIS Status: Chronic Current Visit: Yes (8) Hypertension SNOMED Code(s): 16525906 ICD Code: I10 - ESSENTIAL (PRIMARY) HYPERTENSION Status: Chronic Current Visit: Yes - Patient Summary/Data Consults: Consultations 01/22/21 09:00 Consult to Hospice [CONS] Routine - Patient Instructions Diet: Usual Diet as Tolerated Activity: Bedrest, No Strenuous Activities Driving: Do Not Drive - Discharge Plan *PRESCRIPTION DRUG MONITORING PROGRAM REVIEWED*: No *COPY OF PRESCRIPTION DRUG MONITORING REPORT IN PATIENT KINZA: No Home Medications: Home Meds Donepezil HCl 10 mg PO BEDTIME 01/21/21 [History] QUEtiapine [SEROquel] 25 mg PO BEDTIME 01/21/21 [History] Sertraline [Zoloft] 50 mg PO DAILY 01/21/21 [History] Forms: ED Department Discharge Referrals: Pablo Reynolds MD [Primary Care Provider] - - Patient Data Vitals - Most Recent: Last Vital Signs Temp 36.2 C 01/25/21 09:06 Pulse 85 01/25/21 09:06 Resp 12 01/25/21 09:06 BP 140/64 01/25/21 11:58 Pulse Ox 98 01/25/21 09:06 Weight - Most Recent: 51 kg I&O - Last 24 hours: Intake & Output 01/24/21 01/25/21 01/25/21 22:59 06:59 14:59 Intake Total 100 Output Total 550 Balance -450 ЮЛИЯ Results - Last 24 hrs: Microbiology 01/19/21 12:55 Aerobic Blood Culture - Final Blood - Venous - Lab Draw NO GROWTH AFTER 5 DAYS Anaerobic Blood Culture - Final NO GROWTH AFTER 5 DAYS 01/19/21 12:50 Aerobic Blood Culture - Final Blood - Venous NO GROWTH AFTER 5 DAYS Anaerobic Blood Culture - Final NO GROWTH AFTER 5 DAYS Med Orders - Current: Current Medications Acetaminophen (Acetaminophen 650 Mg Supp) 650 mg RECTAL Q4H PRN PRN Reason: Pain (mild 1-3) Enalaprilat (Enalaprilat 1.25 Mg/Ml Sdv) 1.25 mg IVPUSH Q6H PRN PRN Reason: SBP >140 Last Admin: 01/23/21 23:56 Dose: 1.25 mg Documented by: Azithromycin 500 mg/ Sodium (Chloride) 250 mls @ 250 mls/hr IV Q24H [facility] Last Admin: 01/24/21 17:37 Dose: 250 mls/hr Documented by: Cefepime HCl 1 gm/ Premix 50 mls @ 100 mls/hr IV Q12H [facility]PES[facility] Last Admin: 01/25/21 11:55 Dose: 100 mls/hr Documented by: Lorazepam (Lorazepam Conc Solution 2 Mg/Ml 30 Ml Bottle) 1 mg SL Q4H PRN PRN Reason: agitation/anxiety Last Admin: 01/25/21 10:07 Dose: 1 mg Documented by: Morphine Sulfate (Morphine 10 Mg/0.5 Ml Oral Syringe) 5 mg SL Q2H PRN PRN Reason: pain/dyspnea/agitation Last Admin: 01/25/21 11:56 Dose: 5 mg Documented by: Ondansetron HCl (Ondansetron 4 Mg/2 Ml Sdv) 4 mg IVPUSH Q4H PRN PRN Reason: Nausea Sodium Chloride (Sodium Chloride 0.9% 2.5 Ml Syringe) 2.5 ml FLUSH ASDIRECTED PRN PRN Reason: Keep Vein Open Discontinued Medications Diphenhydramine HCl (Diphenhydramine 50 Mg/Ml Sdv) 50 mg IVPUSH ONETIME ONE Stop: 01/19/21 10:41 Last Admin: 01/19/21 10:45 Dose: 50 mg Documented by: Diphenhydramine HCl (Diphenhydramine 50 Mg/Ml Sdv) Confirm Administered Dose 50 mg .ROUTE .STK-MED ONE Stop: 01/19/21 10:43 Last Admin: 01/19/21 11:23 Dose: Not Given Documented by: Haloperidol Lactate (Haloperidol Lactate 5 Mg/Ml Sdv) 5 mg IM ONETIME ONE Stop: 01/19/21 09:33 Last Admin: 01/19/21 09:50 Dose: 5 mg Documented by: Hydralazine HCl (Hydralazine 20 Mg/Ml Sdv) 10 mg IVPUSH ONETIME ONE Stop: 01/20/21 00:04 Last Admin: 01/20/21 00:19 Dose: 10 mg Documented by: Hydralazine HCl (Hydralazine 20 Mg/Ml Sdv) Confirm Administered Dose 20 mg .ROUTE .STK-MED ONE Stop: 01/20/21 00:09 Last Admin: 01/20/21 00:21 Dose: Not Given Documented by: Hydralazine HCl (Hydralazine 20 Mg/Ml Sdv) 10 mg IVPUSH Q6H PRN PRN Reason: Hypertension Last Admin: 01/20/21 23:29 Dose: 10 mg Documented by: Sodium Chloride (Normal Saline) 1,000 mls @ 999 mls/hr IV .Bolus ONE Stop: 01/19/21 10:26 Last Admin: 01/19/21 09:51 Dose: 999 mls/hr Documented by: Sodium Chloride (Normal Saline) 1,000 mls @ 999 mls/hr IV .Bolus ONE Stop: 01/19/21 12:06 Last Admin: 01/19/21 11:54 Dose: 999 mls/hr Documented by: Cefepime HCl 1 gm/ Premix 50 mls @ 100 mls/hr IV ONETIME ONE Stop: 01/19/21 12:41 Last Admin: 01/19/21 13:29 Dose: 100 mls/hr Documented by: Dextrose/Sodium Chloride (Dextrose 5%-Normal Saline) 1,000 mls @ 150 mls/hr IV ASDIRECTED [facility] Last Admin: 01/19/21 13:29 Dose: 150 mls/hr Documented by: Dextrose/Sodium Chloride (Dextrose 5%-Normal Saline) 1,000 mls @ 125 mls/hr IV Q8H [facility] Last Admin: 01/20/21 08:00 Dose: 125 mls/hr Documented by: Dextrose/Sodium Chloride (Dextrose 5%-Normal Saline) 1,000 mls @ 100 mls/hr IV Q10H [facility] Last Admin: 01/21/21 05:37 Dose: 100 mls/hr Documented by: Sodium Chloride (Sodium Chloride 0.45%) 500 mls @ 50 mls/hr IV ONETIME ONE Stop: 01/22/21 02:03 Last Admin: 01/21/21 16:45 Dose: 50 mls/hr Documented by: Lactated Ringer's (Ringers, Lactated) 500 mls @ 200 mls/hr IV .BOLUS ONE Stop: 01/24/21 17:01 Last Admin: 01/24/21 15:28 Dose: 200 mls/hr Documented by: Labetalol HCl (Labetalol 100 Mg/20 Ml Mdv) 20 mg IVPUSH ONETIME ONE; Protocol Stop: 01/19/21 12:23 Last Admin: 01/19/21 13:12 Dose: Not Given Documented by: Labetalol HCl (Labetalol 100 Mg/20 Ml Mdv) 20 mg IVPUSH ONETIME ONE; Protocol Stop: 01/19/21 13:45 Last Admin: 01/19/21 13:49 Dose: 20 mg Documented by: Labetalol HCl (Labetalol 100 Mg/20 Ml Mdv) 10 mg IVPUSH Q2H PRN PRN Reason: SBP>140 Last Admin: 01/21/21 06:21 Dose: 10 mg Documented by: Lorazepam (Lorazepam 2 Mg/Ml Sdv) 2 mg IVPUSH ONETIME ONE Stop: 01/19/21 10:41 Last Admin: 01/19/21 10:46 Dose: 2 mg Documented by: Lorazepam (Lorazepam 2 Mg/Ml Sdv) Confirm Administered Dose 2 mg .ROUTE .STK-MED ONE Stop: 01/19/21 10:44 Last Admin: 01/19/21 11:23 Dose: Not Given Documented by: Lorazepam (Lorazepam 2 Mg/Ml Sdv) 1 mg IM Q4H PRN PRN Reason: Agitation Last Admin: 01/20/21 10:05 Dose: 1 mg Documented by: Lorazepam (Lorazepam 2 Mg/Ml Sdv) 1 mg IVPUSH Q4H PRN PRN Reason: Agitation Last Admin: 01/21/21 07:36 Dose: 1 mg Documented by: Lorazepam (Lorazepam 2 Mg/Ml Sdv) 1 mg IVPUSH Q4H PRN PRN Reason: agitation/anxiety Last Admin: 01/22/21 10:57 Dose: 1 mg Documented by: Lorazepam (Lorazepam Conc Solution 2 Mg/Ml 30 Ml Bottle) 1 mg SL Q4H PRN PRN Reason: agitation/anxiety Lorazepam (Lorazepam Conc Solution 2 Mg/Ml 30 Ml Bottle) 0 mg SL Q4H PRN PRN Reason: agitation/anxiety Morphine Sulfate (Morphine 2 Mg/Ml Syringe) 2 mg IVPUSH Q2H PRN PRN Reason: Pain/agitation/dyspnea Last Admin: 01/22/21 10:58 Dose: 2 mg Documented by: Olanzapine (Olanzapine 10 Mg Vial) 5 mg IM Q4H PRN PRN Reason: Agitation Last Admin: 01/21/21 03:04 Dose: 5 mg Documented by:
[2021-01-25] MEDS: Enalaprilat 1.25 MG/ML SDV IVPUSH PRN (13:03)
== END 2021-01-25 14:30 | disposition hospice, home (50) | DRG 82 ==
LOC: MW.ED 09:20 → MW.MS 15:22
PROVIDERS: ADMIT Internal Medicine; ATTEND Internal Medicine
DX: S06.5X9A Traumatic subdural hemorrhage with loss of consciousness of unspecified duration, initial encounter (principal); S22.41XA Multiple fractures of ribs, right side, initial encounter for closed fracture; J18.1 Lobar pneumonia, unspecified organism; M62.82 Rhabdomyolysis; Z68.1 Body mass index [BMI] 19.9 or less, adult; R62.7 Adult failure to thrive; Z51.5 Encounter for palliative care; S22.49XD Multiple fractures of ribs, unspecified side, subsequent encounter for fracture with routine healing; K21.9 Gastro-esophageal reflux disease without esophagitis; F03.90 Unspecified dementia, unspecified severity, without behavioral disturbance, psychotic disturbance, mood disturbance, and anxiety; I10 Essential (primary) hypertension; Z79.899 Other long term (current) drug therapy; Z66 Do not resuscitate; Z20.822 Contact with and (suspected) exposure to COVID-19; G93.89 Other specified disorders of brain; S06.2X0S Diffuse traumatic brain injury without loss of consciousness, sequela; W19.XXXA Unspecified fall, initial encounter
CPT/HCPCS: 36415; 51702; 70450; 71250; 74176; 80053; 81001; 82550; 83605; 83690; 83735; 84443; 84484; 85025; 87040 ×2; 93005; 96365; 96372; 96375; 99285; J0692; J1200; J1630; J2060; J3490; J7030 ×2; J7042; U0002; 80048; A9270-GY; J0360; J0456; J2270; J7050; J7120